=== PATIENT | female | born 1945 | race Caucasian/White ===

== ENCOUNTER → 2019-03-17 | Outpatient (CLI) | payer MEDICARE, OTHER ==
[~2019-03-17] MED LIST: B/P MED; CALC-712 PO; CHLO25TA2 PO; CHOL231P PO; CQ10; METR500T PO; ONDAN4ODT PO; multi-vitamines PO
--- NOTE | 2019-03-18 18:51 | Diagnostic Imaging Report ---
INDICATION: Screening. Digital mammogram bilateral screening with 3D tomosynthesis. The current study was also evaluated with a Computer Aided Detection (CAD) system. This study was compared to the prior exam of 04/12/2008. At this time, there are no current complaints. FINDINGS: The fibroglandular tissue in both breasts is heterogeneously dense. This does limit the sensitivity of this exam. Overall, there does not appear to have been any significant change when compared to the prior study. No primary or secondary sign of malignancy is noted. 3D tomographic images fail to show any sign of malignancy. IMPRESSION: 1. There is no evidence for malignancy. 2. The patient should have her annual bilateral screening mammogram on schedule in March of 2020. ACR BI-RADS Category 1: Negative. Result letter will be mailed to the patient. Note: At least 10% of breast cancer is not imaged by mammography. Dictated by: Dictated on workstation # [id number]
== END ==
LOC: RAD 07:50
PROVIDERS: ATTEND Nurse Practitioner Family
DX: Z12.31 Encounter for screening mammogram for malignant neoplasm of breast (principal)
CPT/HCPCS: 77067

== ENCOUNTER 2019-03-25 05:35 | Outpatient (CLI) | payer MEDICARE, OTHER ==
[~2019-03-25] VITALS: Ht 157.5 cm; Wt 48.5 kg
== END 2019-03-25 12:42 | disposition home or self-care (01) ==
LOC: PREOP 05:35
PROVIDERS: ATTEND Internal Medicine
DX: Z01.818 Encounter for other preprocedural examination (principal)

== ENCOUNTER 2019-04-01 07:51 | Day surgery (SDC) | payer MEDICARE, OTHER ==
--- NOTE | 2019-03-24 12:30 | HISTORY AND PHYSICAL ---
DATE OF SERVICE: The patient is a 73-year-old white female referred for surveillance colonoscopy with a history of colon cancer diagnosed at the age of 52. This involves sigmoid colon for which she underwent sigmoid colectomy and has had no evidence for recurrence since. I last performed colonoscopy on her seven years ago in 2011 at which time no evidence for neoplasia was identified. Her health remains good. She remains active with a history of well controlled hypertension and excellent performance status. She has noted no bowel habit change and has noted no melena or bright red blood per rectum. She denies abdominal pain. PAST MEDICAL HISTORY: Significant for hypertension. She had childhood asthma, but has not required any medication for this. MEDICATION: A 12.5 mg of chlorthalidone. FAMILY HISTORY: She believes there was one family member and I have forgotten which relative had colon cancer. 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 SOCIAL HISTORY: She is retired with no past smoking and drinking history and is quite active exercising on a regular basis. PHYSICAL EXAMINATION: GENERAL: Reveals a pleasant white female who appears to be in no acute distress. VITAL SIGNS: Blood pressure 110/80, weight is 107 pounds, is down 5.4 pounds from seven years ago. HEENT: Unremarkable. NECK: Revealed no JVD, adenopathy or bruits. CHEST: Clear to auscultation. CARDIOVASCULAR: Revealed a regular rate and rhythm without murmur, S3 or S4. ABDOMEN: Soft, supple without mass, organomegaly or tenderness. Bowel sounds positive. No bruits noted. EXTREMITIES: Reveal no cyanosis, clubbing or edema. ASSESSMENT: The patient was set up for surveillance colonoscopy due to past history of colon cancer, now over 20 years out on 04/01/2019. Prep instructions were given and questions were answered. Job ID: [id number] DocumentID: [id number] Dictated Date: 03/24/2019 11:52:15 Network Support Manager Date: 03/24/2019 12:29:44 Dictated By: TOYA LLOYD MD
[~2019-04-01] VITALS: Ht 157.5 cm; Wt 48.5 kg
--- OUTSIDE RECORDS SUMMARY | 2019-04-01 07:55 | XMS REPORT | CCD ---
Author Author aYdi Quiroz Organization [facility] Address [address] [place] [address] Phone Care Team Providers Care Transit Manager Name Role Phone PP Unavailable CCM Unavailable Summary Purpose Interface Exchange Insurance Providers Payer name Policy type / Coverage type Covered green party ID Effective Begin Date Effective End Date WPS Medicare Part B Medicare Part B [id number] Unknown Unknown [facility] Medicare Part B [id number] Unknown Unknown Family history Mother Diagnosis Age At Onset Kidney cancer Unknown Father Diagnosis Age At Onset Arthritis Unknown Social History Social History Element Codes Description Effective Dates Marital status Unknown [place]ell 11/02/2017 Number of children Unknown 3 08/29/[address]: 405802274 Never smoker 08/29/2015 Alcohol history Unknown occasionally drinks alcohol 08/29/2015 Allergies, Adverse Reactions, Alerts Substance Reaction Codes Entered Date Inactivated Date Status Penicillin Unknown 08/29/2015 No Inactive Date Active Past Medical History Illness Codes Condition Status Onset Date Resolved Date Encounter for screening mammogram for malignant neoplasm of breast ICD-9: V76.10 ICD-10: Z12.31 Active 03/21/2019 Unknown Encounter for gynecological examination (general) (routine ) without abnormal findings ICD-9: V72.31 ICD-10: Z01.419 Active 10/14/2016 Unknown Gastro-esophageal reflux disease without esophagitis ICD-9: 530.81 ICD-10: K21.9 Active 10/14/2016 Unknown Mixed hyperlipidemia ICD-9: 272.2 ICD-10: E78.2 Active 06/28/2018 Unknown Encounter for general adult medical examination without abnormal findings ICD-9: V70.0 ICD-10: Z00.00 Active 06/28/2018 Unknown Encounter for immunization ICD-9: V04.81 ICD-10: Z23 Active 08/31/2017 Unknown Menopausal and female climacteric states ICD-9: 627.2 ICD-10: N95.1 Active 11/02/2017 Unknown Impacted cerumen, right ear ICD-9: 380.4 ICD-10: H61.21 Active 10/19/2016 Unknown Lichen sclerosus et atrophicus ICD-9: 701.0 ICD-10: L90.0 Active 10/14/2016 Unknown Abnormal findings on diagnostic imaging of skull and head, not elsewhere classified ICD-9: 793.0 ICD-10: R93.0 Active 08/28/2015 Unknown Encounter for immunization ICD-9: V03.82 ICD-10: Z23 Active 08/28/2015 Unknown Other allergic rhinitis ICD-9: 477.8 ICD-10: J30.89 Active 08/28/2015 Unknown Problems Condition Codes Effective Dates Condition Status Encounter for screening mammogram for malignant neoplasm of breast ICD-9: V76.10 ICD-10: Z12.31 03/21/2019 Active Encounter for gynecological examination (general) (routine ) without abnormal findings ICD-9: V72.31 ICD-10: Z01.419 10/14/2016 Active Gastro-esophageal reflux disease without esophagitis ICD-9: 530.81 ICD-10: K21.9 10/14/2016 Active Mixed hyperlipidemia ICD-9: 272.2 ICD-10: E78.2 06/28/2018 Active Encounter for general adult medical examination without abnormal findings ICD-9: V70.0 ICD-10: Z00.00 06/28/2018 Active Encounter for immunization ICD-9: V04.81 ICD-10: Z23 08/31/2017 Active Menopausal and female climacteric states ICD-9: 627.2 ICD-10: N95.1 11/02/2017 Active Impacted cerumen, right ear ICD-9: 380.4 ICD-10: H61.21 10/19/2016 Active Lichen sclerosus et atrophicus ICD-9: 701.0 ICD-10: L90.0 10/14/2016 Active Abnormal findings on diagnostic imaging of skull and head, not elsewhere classified ICD-9: 793.0 ICD-10: R93.0 08/28/2015 Active Encounter for immunization ICD-9: V03.82 ICD-10: Z23 08/28/2015 Active Other allergic rhinitis ICD-9: 477.8 ICD-10: J30.89 08/28/2015 Active Medications Medication Codes Instructions Start Date Stop Date Status Fill Instructions Heidya 1 gram capsule RxNorm: 962942 1 Capsule(s) PO BID 201802/18/2020 Active [place] approved Lovaza 1 gram capsule RxNorm: 463035 1 Capsule(s) PO BID 201711/25/2018 Inactive pravastatin 20 mg tablet RxNorm: 148159 TAKE 1 TABLET DAILY 11/01/2017 Inactive omeprazole 20 mg capsule,delayed release RxNorm: 278948 1 CAPSULE(S) PO QPM 09/22/2017 11/01/2017 Inactive pravastatin 20 mg tablet RxNorm: 012040 TAKE 1 TABLET DAILY 10/04/2017 Inactive pravastatin 20 mg tablet RxNorm: 066050 1 TABLET(S) PO DAILY 07/06/2017 Inactive pravastatin 20 mg tablet RxNorm: 071455 1 Tablet(s) PO daily 04/07/2017 Inactive pravastatin 20 mg tablet RxNorm: 351846 1 Tablet(s) PO daily 10/28/2016 Inactive omeprazole 20 mg capsule,delayed release RxNorm: 168321 1 Capsule(s) PO QPM 10/15/2016 09/21/2017 Inactive Vitamin B-12 oral RxNorm: 14647 oral No Start Date Active CoQ10 SG 100 100 mg-100 unit capsule RxNorm: 702642 1 Capsule(s) PO daily No Start Date 10/14/2016 Inactive loratadine 10 mg tablet RxNorm: 603853 1 Tablet(s) PO daily No Start Date 11/01/2017 Inactive pravastatin 10 mg tablet RxNorm: 474886 1 Tablet(s) PO daily No Start Date 11/02/2018 Inactive aspirin 81 mg tablet RxNorm: 776100 1 Tablet(s) PO daily No Start Date 10/14/2016 Inactive Premarin vaginal RxNorm: 4099 vaginal No Start Date 11/01/2017 Inactive Medication Administered No Medication Administered data Immunizations Vaccine Codes Date Status Influenza CVX: 141 08/23/2018 completed Influenza CVX: 141 08/31/2017 completed Pneumococcal (Adult) CVX: 133 08/29/2015 completed Pneumococcal (Adult) CVX: 133 08/29/2015 completed Influenza CVX: 141 08/16/2014 completed Assessments Condition Codes Effective Dates Encounter for screening mammogram for malignant neoplasm of breast ICD-10: Z12.31 ICD-9: V76.10 03/21/2019 Mixed hyperlipidemia ICD-10: E78.2 ICD-9: 272.2 11/03/2018 Encounter for general adult medical examination without abnormal findings ICD-10: Z00.00 ICD-9: V70.0 09/13/2018 Encounter for immunization ICD-10: Z23 ICD-9: V04.81 08/23/2018 Menopausal and female climacteric states ICD-10: N95.1 ICD-9: 627.2 11/02/2017 Impacted cerumen, right ear ICD-10: H61.21 ICD-9: 380.4 10/20/2016 Lichen sclerosus et atrophicus ICD-10: L90.0 ICD-9: 701.0 10/15/2016 Encounter for gynecological examination (general) (routine) without abnormal findings ICD-10: Z01.419 ICD-9: V72.31 10/15/2016 Gastro-esophageal reflux disease without esophagitis ICD-10 : K21.9 ICD-9: 530.81 10/15/2016 Abnormal findings on diagnostic imaging of skull and head, not elsewhere classified ICD-10: R93.0 ICD-9: 793.0 08/29/2015 Encounter for immunization ICD-10: Z23 ICD-9: V03.82 08/29/2015 Other allergic rhinitis ICD-10: J30.89 ICD-9: 477.8 08/29/2015 Reason For Visit Reason For Visit Effective Dates Notes well woman exam (65+ years) 11/03/2018 Annual Medicare Wellness Exam 09/13/2018 vaccination against influenza 08/23/2018 well woman exam (65+ years) 11/02/2017 vaccination against influenza 08/31/2017 well woman exam (65+ years) 10/15/2016 vaccination against pneumonia 08/29/2015 Results Observation Observation Code Item Item Code Result Date Lipid Ord30 CHOL 271 mg/dL 10/18/2018 Lipid Ord30 HDL 104.0 mg/dl 10/18/2018 Lipid Ord30 TRIG 69 mg/dL 10/18/2018 Lipid Ord30 LDL 153 mg/dL 10/18/2018 Lipid Ord30 C/HDL 2.6 Ratio 10/18/2018 Tsh Ord6 TSH (3rd IS) 4.54 uIU/mL 07/06/2018 Cbc With Differential Ord2 WBC 5.25 K/ul 07/06/2018 Cbc With Differential Ord2 RBC 4.23 M/ul 07/06/2018 Cbc With Differential Ord2 HGB 13.2 g/dl 07/06/2018 Cbc With Differential Ord2 HCT 39.3 % 07/06/2018 Cbc With Differential Ord2 Neut% 56.4 % 07/06/2018 Cbc With Differential Ord2 MCV 92.9 fl 07/06/2018 Cbc With Differential Ord2 Lymph% 33.9 % 07/06/2018 Cbc With Differential Ord2 MCH 31.2 pg 07/06/2018 Cbc With Differential Ord2 Izard% 7.4 % 07/06/2018 Cbc With Differential Ord2 MCHC 33.6 pg 07/06/2018 Cbc With Differential Ord2 Eos% 1.9 % 07/06/2018 Cbc With Differential Ord2 PLT 185 K/ul 07/06/2018 Cbc With Differential Ord2 Baso% 0.4 % 07/06/2018 Cbc With Differential Ord2 RDW 12.7 % 07/06/2018 Cbc With Differential Ord2 Neut ABS# 2.96 K/ul 07/06/2018 Cbc With Differential Ord2 Lymph ABS# 1.78 K/ul 07/06/2018 Cbc With Differential Ord2 Izard ABS# 0.4 K/ul 07/06/2018 Cbc With Differential Ord2 Eos ABS# 0.1 K/ul 07/06/2018 Cbc With Differential Ord2 Baso ABS# 0.0 K/ul 07/06/2018 Lipid Ord30 CHOL 262 mg/dL 07/06/2018 Lipid Ord30 HDL 85.0 mg/dl 07/06/2018 Lipid Ord30 TRIG 69 mg/dL 07/06/2018 Lipid Ord30 LDL 163 mg/dL 07/06/2018 Lipid Ord30 C/HDL 3.1 Ratio 07/06/2018 Comp Metabolic Kvd717 NA 139 mEq/L 07/06/2018 Comp Metabolic Vot688 K 4.1 mEq/L 07/06/2018 Comp Metabolic Fgx875 CL 102 mEq/L 07/06/2018 Comp Metabolic Gtj872 CO2 29.0 mEq/L 07/06/2018 Comp Metabolic Euy407 ANION GAP 12 07/06/2018 Comp Metabolic Pca329 GLUCOSE 98 mg/dL 07/06/2018 Comp Metabolic Wqa200 Creat 0.7 mg/dL 07/06/2018 Comp Metabolic Ewy183 eGFR 82 ml/min/1.73m2 07/06/2018 Comp Metabolic Fss755 BUN 14 mg/dL 07/06/2018 Comp Metabolic Ama203 B/C Ratio 18.9 Ratio 07/06/2018 Comp Metabolic Qiy001 CALCIUM 9.4 mg/dL 07/06/2018 Comp Metabolic Ifq673 ALK PHOS 50 U/L 07/06/2018 Comp Metabolic Mjg360 AST(SGOT) 18 U/L 07/06/2018 Comp Metabolic Cqz865 ALT(SGPT) 8 U/L 07/06/2018 Comp Metabolic Yxm355 BILI T 0.6 mg/dL 07/06/2018 Comp Metabolic Fvv001 ALBUMIN 4.3 g/dL 07/06/2018 Comp Metabolic Lta048 TPRO 7.2 g/dL 07/06/2018 Comp Metabolic Ted643 GLOB 2.9 g/dL 07/06/2018 Comp Metabolic Mkf261 A/G Ratio 1.5 Ratio 07/06/2018 Comp Metabolic Eqc423 Osmo 278 mOsmo 07/06/2018 Lipid Ord30 CHOL 243 mg/dL 03/30/2017 Lipid Ord30 HDL 83.0 mg/dl 03/30/2017 Lipid Ord30 TRIG 70 mg/dL 03/30/2017 Lipid Ord30 LDL 146 mg/dL 03/30/2017 Lipid Ord30 C/HDL 2.9 Ratio 03/30/2017 Comp Metabolic Kum685 NA 137 mEq/L 10/20/2016 Comp Metabolic Asl315 K 4.6 mEq/L 10/20/2016 Comp Metabolic Uvt635 CL 102 mEq/L 10/20/2016 Comp Metabolic Mfr877 CO2 30.0 mEq/L 10/20/2016 Comp Metabolic Tzn320 ANION GAP 10 10/20/2016 Comp Metabolic Rkh953 GLUCOSE 97 mg/dL 10/20/2016 Comp Metabolic Sok677 Creat 0.9 mg/dL 10/20/2016 Comp Metabolic Ilg686 eGFR 69 ml/min/1.73m2 10/20/2016 Comp Metabolic Tei025 BUN 16 mg/dL 10/20/2016 Comp Metabolic Rvb500 B/C Ratio 18.6 Ratio 10/20/2016 Comp Metabolic Zkk166 CALCIUM 9.4 mg/dL 10/20/2016 Comp Metabolic Npa433 ALK PHOS 52 U/L 10/20/2016 Comp Metabolic Lru077 AST(SGOT) 18 U/L 10/20/2016 Comp Metabolic Vfe633 ALT(SGPT) 10 U/L 10/20/2016 Comp Metabolic Vnr589 BILI T 0.7 mg/dL 10/20/2016 Comp Metabolic Aor289 ALBUMIN 4.3 g/dL 10/20/2016 Comp Metabolic Yxl782 TPRO 7.1 g/dL 10/20/2016 Comp Metabolic Yhw311 GLOB 2.8 g/dL 10/20/2016 Comp Metabolic Qju331 A/G Ratio 1.5 Ratio 10/20/2016 Comp Metabolic Bcj980 Osmo 275 mOsmo 10/20/2016 Tsh Ord6 hTSH II 2.06 uIU/mL 10/20/2016 Lipid Ord30 CHOL 276 mg/dL 10/20/2016 Lipid Ord30 HDL 101.0 mg/dl 10/20/2016 Lipid Ord30 TRIG 74 mg/dL 10/20/2016 Lipid Ord30 LDL 160 mg/dL 10/20/2016 Lipid Ord30 C/HDL 2.7 Ratio 10/20/2016 Cbc With Differential Ord2 WBC 6.11 K/ul 10/20/2016 Cbc With Differential Ord2 RBC 4.18 M/ul 10/20/2016 Cbc With Differential Ord2 HGB 13.1 g/dl 10/20/2016 Cbc With Differential Ord2 HCT 39.6 % 10/20/2016 Cbc With Differential Ord2 Neut% 55.1 % 10/20/2016 Cbc With Differential Ord2 MCV 94.7 fl 10/20/2016 Cbc With Differential Ord2 Lymph% 36.5 % 10/20/2016 Cbc With Differential Ord2 MCH 31.3 pg 10/20/2016 Cbc With Differential Ord2 Izard% 6.5 % 10/20/2016 Cbc With Differential Ord2 MCHC 33.1 pg 10/20/2016 Cbc With Differential Ord2 Eos% 1.6 % 10/20/2016 Cbc With Differential Ord2 PLT 221 K/ul 10/20/2016 Cbc With Differential Ord2 Baso% 0.3 % 10/20/2016 Cbc With Differential Ord2 RDW 13.4 % 10/20/2016 Cbc With Differential Ord2 Neut ABS# 3.36 K/ul 10/20/2016 Cbc With Differential Ord2 Lymph ABS# 2.23 K/ul 10/20/2016 Cbc With Differential Ord2 Izard ABS# 0.4 K/ul 10/20/2016 Cbc With Differential Ord2 Eos ABS# 0.1 K/ul 10/20/2016 Cbc With Differential Ord2 Baso ABS# 0.0 K/ul 10/20/2016 Review of Systems System Result Effective Dates Constitutional No recent illness 2017 Constitutional No chills 11/03/2018 Constitutional No fatigue 11/03/2018 Constitutional No fever 11/03/2018 Constitutional No insomnia 11/03/2018 Constitutional No malaise 11/03/2018 Eyes No blindness 11/03/2018 Ears/Nose/Throat/Neck No dental pain Ears/Nose/Throat/Neck No dizziness 2017 Ears/Nose/Throat/Neck No dysphagia 2017 Ears/Nose/Throat/Neck No headache 2017 Ears/Nose/Throat/Neck No hearing loss Ears/Nose/Throat/Neck No nasal allergies 11/03/2018 Ears/Nose/Throat/Neck No sore throat Ears/Nose/Throat/Neck No postnasal drip 11/03/2018 Ears/Nose/Throat/Neck No sinus congestion 11/03/2018 Cardiovascular No chest pain/pressure Cardiovascular No dyspnea 11/03/2018 Cardiovascular No edema 11/03/2018 Cardiovascular No exercise intolerance Cardiovascular No fatigue 11/03/2018 Cardiovascular No near-syncope/dizziness 11/03/2018 Respiratory No chest tightness 2017 Respiratory No cough 11/03/2018 Respiratory No dyspnea 11/03/2018 Respiratory No pedal edema 11/03/2018 Gastrointestinal No abdominal pain 2017 Gastrointestinal No constipation 2017 Gastrointestinal No diarrhea 11/03/2018 Gastrointestinal No gastroesophageal reflux 11/03/2018 Gastrointestinal No nausea 11/03/2018 Gastrointestinal No vomiting 11/03/2018 Genitourinary/Nephrology No dysuria 11/03 Genitourinary/Nephrology No nocturia Genitourinary/Nephrology No urinary incontinence 11/03/2018 Musculoskeletal No stiffness 11/03/2018 Musculoskeletal No swelling 11/03/2018 Musculoskeletal No muscle weakness 2017 Musculoskeletal No myalgias 11/03/2018 Dermatologic No rash 11/03/2018 Dermatologic No sores 11/03/2018 Dermatologic No scar 11/03/2018 Neurologic No dizziness 11/03/2018 Neurologic No headache 11/03/2018 Neurologic No neck pain 11/03/2018 Neurologic No syncope 11/03/2018 Psychiatric No anxiety 11/03/2018 Psychiatric No depression 11/03/2018 Constitutional No recent illness 2017 Constitutional No chills 09/13/2018 Constitutional No fatigue 09/13/2018 Constitutional No fever 09/13/2018 Constitutional No insomnia 09/13/2018 Constitutional No malaise 09/13/2018 Eyes No blindness 09/13/2018 Eyes No vision change 09/13/2018 Ears/Nose/Throat/Neck No dental pain Ears/Nose/Throat/Neck No dizziness 2017 Ears/Nose/Throat/Neck No dysphagia 2017 Ears/Nose/Throat/Neck No headache 2017 Ears/Nose/Throat/Neck No hearing loss Ears/Nose/Throat/Neck No nasal allergies 09/13/2018 Ears/Nose/Throat/Neck No sore throat Ears/Nose/Throat/Neck No postnasal drip 09/13/2018 Ears/Nose/Throat/Neck No sinus congestion 09/13/2018 Cardiovascular No chest pain/pressure Cardiovascular No dyspnea 09/13/2018 Cardiovascular No edema 09/13/2018 Cardiovascular No exercise intolerance Cardiovascular No fatigue 09/13/2018 Cardiovascular No near-syncope/dizziness 09/13/2018 Respiratory No chest tightness 2017 Respiratory No cough 09/13/2018 Respiratory No dyspnea 09/13/2018 Respiratory No pedal edema 09/13/2018 Gastrointestinal No abdominal pain 2017 Gastrointestinal No constipation 2017 Gastrointestinal No diarrhea 09/13/2018 Gastrointestinal No gastroesophageal reflux 09/13/2018 Gastrointestinal No nausea 09/13/2018 Gastrointestinal No vomiting 09/13/2018 Genitourinary/Nephrology No dysuria 09/13 Genitourinary/Nephrology No nocturia Genitourinary/Nephrology No urinary incontinence 09/13/2018 Musculoskeletal No stiffness 09/13/2018 Musculoskeletal No swelling 09/13/2018 Musculoskeletal No muscle weakness 2017 Musculoskeletal No myalgias 09/13/2018 Dermatologic No rash 09/13/2018 Dermatologic No sores 09/13/2018 Dermatologic No scar 09/13/2018 Neurologic No dizziness 09/13/2018 Neurologic No headache 09/13/2018 Neurologic No neck pain 09/13/2018 Neurologic No syncope 09/13/2018 Psychiatric No anxiety 09/13/2018 Psychiatric No depression 09/13/2018 Constitutional No anorexia 09/13/2018 Constitutional No night sweats 2017 Constitutional No diaphoresis 09/13/2018 Constitutional No recent illness 2016 Constitutional No chills 11/02/2017 Constitutional No fatigue 11/02/2017 Constitutional No fever 11/02/2017 Constitutional No insomnia 11/02/2017 Constitutional No malaise 11/02/2017 Eyes No blindness 11/02/2017 Eyes vision change 11/02/2017 Ears/Nose/Throat/Neck No dental pain Ears/Nose/Throat/Neck No dizziness 2016 Ears/Nose/Throat/Neck No dysphagia 2016 Ears/Nose/Throat/Neck No headache 2016 Ears/Nose/Throat/Neck No hearing loss Ears/Nose/Throat/Neck No nasal allergies 11/02/2017 Ears/Nose/Throat/Neck No sore throat Ears/Nose/Throat/Neck taste change 2016 Ears/Nose/Throat/Neck No postnasal drip 11/02/2017 Ears/Nose/Throat/Neck No sinus congestion 11/02/2017 Cardiovascular No chest pain/pressure Cardiovascular No dyspnea 11/02/2017 Cardiovascular No edema 11/02/2017 Cardiovascular No exercise intolerance Cardiovascular No fatigue 11/02/2017 Cardiovascular No near-syncope/dizziness 11/02/2017 Respiratory No chest tightness 2016 Respiratory No cough 11/02/2017 Respiratory No dyspnea 11/02/2017 Respiratory No pedal edema 11/02/2017 Gastrointestinal No abdominal pain 2016 Gastrointestinal No constipation 2016 Gastrointestinal No diarrhea 11/02/2017 Gastrointestinal No gastroesophageal reflux 11/02/2017 Gastrointestinal No nausea 11/02/2017 Gastrointestinal No vomiting 11/02/2017 Genitourinary/Nephrology No dysuria 11/02 Genitourinary/Nephrology No nocturia Genitourinary/Nephrology No urinary incontinence 11/02/2017 Musculoskeletal No stiffness 11/02/2017 Musculoskeletal No swelling 11/02/2017 Musculoskeletal No muscle weakness 2016 Musculoskeletal No myalgias 11/02/2017 Dermatologic No rash 11/02/2017 Dermatologic No sores 11/02/2017 Dermatologic No scar 11/02/2017 Neurologic No dizziness 11/02/2017 Neurologic No headache 11/02/2017 Neurologic No neck pain 11/02/2017 Neurologic No syncope 11/02/2017 Psychiatric No anxiety 11/02/2017 Psychiatric No depression 11/02/2017 Constitutional No recent illness 2015 Constitutional No chills 10/15/2016 Constitutional No fatigue 10/15/2016 Constitutional No fever 10/15/2016 Constitutional No insomnia 10/15/2016 Constitutional No malaise 10/15/2016 Eyes No blindness 10/15/2016 Eyes vision change 10/15/2016 Ears/Nose/Throat/Neck No dental pain Ears/Nose/Throat/Neck No dizziness 2015 Ears/Nose/Throat/Neck No dysphagia 2015 Ears/Nose/Throat/Neck No headache 2015 Ears/Nose/Throat/Neck No hearing loss Ears/Nose/Throat/Neck No nasal allergies 10/15/2016 Ears/Nose/Throat/Neck No sore throat Ears/Nose/Throat/Neck No postnasal drip 10/15/2016 Ears/Nose/Throat/Neck No sinus congestion 10/15/2016 Cardiovascular No chest pain/pressure Cardiovascular No dyspnea 10/15/2016 Cardiovascular No edema 10/15/2016 Cardiovascular No exercise intolerance Cardiovascular No fatigue 10/15/2016 Cardiovascular No near-syncope/dizziness 10/15/2016 Respiratory No chest tightness 2015 Respiratory No cough 10/15/2016 Respiratory No dyspnea 10/15/2016 Respiratory No pedal edema 10/15/2016 Gastrointestinal No abdominal pain 2015 Gastrointestinal No constipation 2015 Gastrointestinal No diarrhea 10/15/2016 Gastrointestinal No gastroesophageal reflux 10/15/2016 Gastrointestinal No nausea 10/15/2016 Gastrointestinal No vomiting 10/15/2016 Genitourinary/Nephrology No dysuria 10/15 Genitourinary/Nephrology No nocturia Genitourinary/Nephrology No urinary incontinence 10/15/2016 Musculoskeletal No stiffness 10/15/2016 Musculoskeletal No swelling 10/15/2016 Musculoskeletal No muscle weakness 2015 Musculoskeletal No myalgias 10/15/2016 Dermatologic No rash 10/15/2016 Dermatologic No sores 10/15/2016 Dermatologic No scar 10/15/2016 Neurologic No dizziness 10/15/2016 Neurologic No headache 10/15/2016 Neurologic No neck pain 10/15/2016 Neurologic No syncope 10/15/2016 Psychiatric No anxiety 10/15/2016 Psychiatric No depression 10/15/2016 Ears/Nose/Throat/Neck taste change 2015 Constitutional No recent illness 2014 Constitutional No chills 08/29/2015 Constitutional No fatigue 08/29/2015 Constitutional No fever 08/29/2015 Constitutional No insomnia 08/29/2015 Constitutional No malaise 08/29/2015 Eyes No blindness 08/29/2015 Eyes No vision change 08/29/2015 Ears/Nose/Throat/Neck No dental pain Ears/Nose/Throat/Neck No dizziness 2014 Ears/Nose/Throat/Neck No dysphagia 2014 Ears/Nose/Throat/Neck No headache 2014 Ears/Nose/Throat/Neck No hearing loss Ears/Nose/Throat/Neck No nasal allergies 08/29/2015 Ears/Nose/Throat/Neck No sore throat Ears/Nose/Throat/Neck No postnasal drip 08/29/2015 Ears/Nose/Throat/Neck No sinus congestion 08/29/2015 Cardiovascular No chest pain/pressure Cardiovascular No dyspnea 08/29/2015 Cardiovascular No edema 08/29/2015 Cardiovascular No exercise intolerance Cardiovascular No fatigue 08/29/2015 Cardiovascular No near-syncope/dizziness 08/29/2015 Respiratory No chest tightness 2014 Respiratory No cough 08/29/2015 Respiratory No dyspnea 08/29/2015 Respiratory No pedal edema 08/29/2015 Gastrointestinal No abdominal pain 2014 Gastrointestinal No constipation 2014 Gastrointestinal No diarrhea 08/29/2015 Gastrointestinal No gastroesophageal reflux 08/29/2015 Gastrointestinal No nausea 08/29/2015 Gastrointestinal No vomiting 08/29/2015 Genitourinary/Nephrology No dysuria 08/29 Genitourinary/Nephrology No nocturia Genitourinary/Nephrology No urinary incontinence 08/29/2015 Musculoskeletal No stiffness 08/29/2015 Musculoskeletal No swelling 08/29/2015 Musculoskeletal No muscle weakness 2014 Musculoskeletal No myalgias 08/29/2015 Dermatologic No rash 08/29/2015 Dermatologic No sores 08/29/2015 Dermatologic No scar 08/29/2015 Neurologic No dizziness 08/29/2015 Neurologic No headache 08/29/2015 Neurologic No neck pain 08/29/2015 Neurologic No syncope 08/29/2015 Psychiatric No anxiety 08/29/2015 Psychiatric No depression 08/29/2015 Physical Exam Exam Name System Name Item Name Status Result Effective Dates Notes Full Exam - General 1994 Constitutional general appearance Development: well developed 11/03/2018 None Full Exam - General 1994 Constitutional general appearance Development: appears stated age 1211/03/2018 None Full Exam - General 1994 Constitutional general appearance Hygiene/Attention to Grooming: good hygiene 11/03/2018 None Full Exam - General 1994 Eyes conjunctiva /eyelids Overall: conjunctiva clear 11/03/2018 None Full Exam - General 1994 Eyes conjunctiva /eyelids Overall: cornea clear 11/03/2018 None Full Exam - General 1994 Eyes conjunctiva /eyelids Overall: eyelids normal 11/03/2018 None Full Exam - General 1994 Eyes pupils and irises Overall: pupils equal, round, reactive to light and accomodation 11/03/2018 None Full Exam - General 1994 Ears/Nose/Throat otoscopic exam Overall: external auditory canals clear 11/03/2018 None Full Exam - General 1994 Ears/Nose/Throat otoscopic exam Overall: tympanic membranes clear 11/03/2018 None Full Exam - General 1994 Ears/Nose/Throat lips/teeth/gingiva Overall: benign lips 11/03/2018 None Full Exam - General 1994 Ears/Nose/Throat lips/teeth/gingiva Overall: normal dentition 11/03/2018 None Full Exam - General 1994 Ears/Nose/Throat oral cavity/pharynx/larynx Overall: oral mucosa clear 11/03/2018 None Full Exam - General 1994 Ears/Nose/Throat oral cavity/pharynx/larynx Overall: oropharyngeal mucosa clear 11/03/2018 None Full Exam - General 1994 Ears/Nose/Throat oral cavity/pharynx/larynx Overall: hypopharynx benign 11/03/2018 None Full Exam - General 1994 Ears/Nose/Throat oral cavity/pharynx/larynx Overall: no masses 11/03/2018 None Full Exam - General 1994 Respiratory auscultation Overall: breath sounds clear bilaterally 11/03/2018 None Full Exam - General 1994 Respiratory respiratory effort/rhythm Overall: no retractions 11/03/2018 None Full Exam - General 1994 Respiratory respiratory effort/rhythm Overall: normal rate 11/03/2018 None Full Exam - General 1994 Cardiovascular extremities Overall: no clubbing 11/03/2018 None Full Exam - General 1994 Cardiovascular auscultation of heart Overall: regular rate 11/03/2018 None Full Exam - General 1994 Cardiovascular auscultation of heart Overall: normal heart sounds 11/03/2018 None Full Exam - General 1994 Abdomen abdominal exam Overall: no tenderness 11/03/2018 None Full Exam - General 1994 Abdomen abdominal exam Overall: normal bowel sounds 11/03/2018 None Full Exam - General 1994 Lymphatic neck nodes Overall: anterior cervical chain benign 11/03/2018 None Full Exam - General 1994 Lymphatic neck nodes Overall: posterior cervical chain benign 11/03/2018 None Full Exam - General 1994 Musculoskeletal spine, ribs and pelvis Overall: spine benign 11/03/2018 None Full Exam - General 1994 Musculoskeletal spine, ribs and pelvis Overall: sacroiliac joint benign 11/03/2018 None Full Exam - General 1994 Musculoskeletal spine, ribs and pelvis Overall: good posture 11/03/2018 None Full Exam - General 1994 Musculoskeletal head and neck Overall: head atraumatic 11/03/2018 None Full Exam - General 1994 Musculoskeletal head and neck Overall: cervical spine benign 11/03/2018 None Full Exam - General 1994 Integument inspection of skin Overall: few scattered moles, no gross abnormalities 11/03/2018 None Full Exam - General 1994 Neurologic cranial nerves Overall: crainial nerves 2 - 12 grossly intact 11/03/2018 None Full Exam - General 1994 Psychiatric orientation/consciousness Overall: oriented to person, place and time 11/03/2018 None Full Exam - General 1994 Psychiatric mood and affect Overall: normal mood and affect 11/03/2018 None Full Exam - General 1994 Constitutional general appearance Development: well developed 09/13/2018 None Full Exam - General 1994 Constitutional general appearance Development: appears stated age 1009/13/2018 None Full Exam - General 1994 Constitutional general appearance Hygiene/Attention to Grooming: good hygiene 09/13/2018 None Full Exam - General 1994 Eyes conjunctiva /eyelids Overall: conjunctiva clear 09/13/2018 None Full Exam - General 1994 Eyes conjunctiva /eyelids Overall: cornea clear 09/13/2018 None Full Exam - General 1994 Eyes conjunctiva /eyelids Overall: eyelids normal 09/13/2018 None Full Exam - General 1994 Eyes pupils and irises Overall: pupils equal, round, reactive to light and accomodation 09/13/2018 None Full Exam - General 1994 Ears/Nose/Throat otoscopic exam Overall: external auditory canals clear 09/13/2018 None Full Exam - General 1994 Ears/Nose/Throat otoscopic exam Overall: tympanic membranes clear 09/13/2018 None Full Exam - General 1994 Ears/Nose/Throat lips/teeth/gingiva Overall: benign lips 09/13/2018 None Full Exam - General 1994 Ears/Nose/Throat lips/teeth/gingiva Overall: normal dentition 09/13/2018 None Full Exam - General 1994 Ears/Nose/Throat oral cavity/pharynx/larynx Overall: oral mucosa clear 09/13/2018 None Full Exam - General 1994 Ears/Nose/Throat oral cavity/pharynx/larynx Overall: oropharyngeal mucosa clear 09/13/2018 None Full Exam - General 1994 Ears/Nose/Throat oral cavity/pharynx/larynx Overall: hypopharynx benign 09/13/2018 None Full Exam - General 1994 Ears/Nose/Throat oral cavity/pharynx/larynx Overall: no masses 09/13/2018 None Full Exam - General 1994 Respiratory auscultation Overall: breath sounds clear bilaterally 09/13/2018 None Full Exam - General 1994 Respiratory respiratory effort/rhythm Overall: no retractions 09/13/2018 None Full Exam - General 1994 Respiratory respiratory effort/rhythm Overall: normal rate 09/13/2018 None Full Exam - General 1994 Cardiovascular extremities Overall: no clubbing 09/13/2018 None Full Exam - General 1994 Cardiovascular auscultation of heart Overall: regular rate 09/13/2018 None Full Exam - General 1994 Cardiovascular auscultation of heart Overall: normal heart sounds 09/13/2018 None Full Exam - General 1994 Musculoskeletal spine, ribs and pelvis Overall: spine benign 09/13/2018 None Full Exam - General 1994 Musculoskeletal spine, ribs and pelvis Overall: sacroiliac joint benign 09/13/2018 None Full Exam - General 1994 Musculoskeletal spine, ribs and pelvis Overall: good posture 09/13/2018 None Full Exam - General 1994 Musculoskeletal head and neck Overall: head atraumatic 09/13/2018 None Full Exam - General 1994 Musculoskeletal head and neck Overall: cervical spine benign 09/13/2018 None Full Exam - General 1994 Integument inspection of skin Overall: few scattered moles, no gross abnormalities 09/13/2018 None Full Exam - General 1994 Neurologic deep tendon reflexes Overall: deep tendon reflexes intact 09/13/2018 None Full Exam - General 1994 Neurologic cranial nerves Overall: crainial nerves 2 - 12 grossly intact 09/13/2018 None Full Exam - General 1994 Psychiatric orientation/consciousness Overall: oriented to person, place and time 09/13/2018 None Full Exam - General 1994 Psychiatric mood and affect Overall: normal mood and affect 09/13/2018 None Full Exam - General 1994 Constitutional general appearance Development: well developed 11/02/2017 None Full Exam - General 1994 Constitutional general appearance Development: appears stated age 1211/02/2017 None Full Exam - General 1994 Constitutional general appearance Hygiene/Attention to Grooming: good hygiene 11/02/2017 None Full Exam - General 1994 Eyes conjunctiva /eyelids Overall: conjunctiva clear 11/02/2017 None Full Exam - General 1994 Eyes conjunctiva /eyelids Overall: cornea clear 11/02/2017 None Full Exam - General 1994 Eyes conjunctiva /eyelids Overall: eyelids normal 11/02/2017 None Full Exam - General 1994 Eyes pupils and irises Overall: pupils equal, round, reactive to light and accomodation 11/02/2017 None Full Exam - General 1994 Ears/Nose/Throat otoscopic exam Overall: external auditory canals clear 11/02/2017 None Full Exam - General 1994 Ears/Nose/Throat otoscopic exam Overall: tympanic membranes clear 11/02/2017 None Full Exam - General 1994 Ears/Nose/Throat lips/teeth/gingiva Overall: benign lips 11/02/2017 None Full Exam - General 1994 Ears/Nose/Throat lips/teeth/gingiva Overall: normal dentition 11/02/2017 None Full Exam - General 1994 Ears/Nose/Throat oral cavity/pharynx/larynx Overall: oral mucosa clear 11/02/2017 None Full Exam - General 1994 Ears/Nose/Throat oral cavity/pharynx/larynx Overall: oropharyngeal mucosa clear 11/02/2017 None Full Exam - General 1994 Ears/Nose/Throat oral cavity/pharynx/larynx Overall: hypopharynx benign 11/02/2017 None Full Exam - General 1994 Ears/Nose/Throat oral cavity/pharynx/larynx Overall: no masses 11/02/2017 None Full Exam - General 1994 Respiratory auscultation Overall: breath sounds clear bilaterally 11/02/2017 None Full Exam - General 1994 Respiratory respiratory effort/rhythm Overall: no retractions 11/02/2017 None Full Exam - General 1994 Respiratory respiratory effort/rhythm Overall: normal rate 11/02/2017 None Full Exam - General 1994 Cardiovascular extremities Overall: no clubbing 11/02/2017 None Full Exam - General 1994 Cardiovascular auscultation of heart Overall: regular rate 11/02/2017 None Full Exam - General 1994 Cardiovascular auscultation of heart Overall: normal heart sounds 11/02/2017 None Full Exam - General 1994 Chest/Breast breast and axillae palpation Overall: breasts non-tender 11/02/2017 None Full Exam - General 1994 Chest/Breast breast and axillae palpation Overall: axillae non-tender 11/02/2017 None Full Exam - General 1994 Chest/Breast breast and axillae palpation Overall: no nipple discharge 11/02/2017 None Full Exam - General 1994 Abdomen abdominal exam Overall: no tenderness 11/02/2017 None Full Exam - General 1994 Abdomen abdominal exam Overall: normal bowel sounds 11/02/2017 None Full Exam - General 1994 Genitourinary cervix Overall: surgically absent 11/02/2017 None Full Exam - General 1994 Genitourinary labia and vagina Labia: no lesions present 11/02/2017 None Full Exam - General 1994 Genitourinary labia and vagina Vagina: erythematous 11/02/2017 lichen sclerosis Full Exam - General 1994 Genitourinary adnexa/parametria Overall: no tenderness 11/02/2017 None Full Exam - General 1994 Genitourinary urethra Overall: no masses 11/02/2017 None Full Exam - General 1994 Genitourinary bladder Overall: no tenderness 11/02/2017 None Full Exam - General 1994 Lymphatic neck nodes Overall: anterior cervical chain benign 11/02/2017 None Full Exam - General 1994 Lymphatic neck nodes Overall: posterior cervical chain benign 11/02/2017 None Full Exam - General 1994 Musculoskeletal spine, ribs and pelvis Overall: spine benign 11/02/2017 None Full Exam - General 1994 Musculoskeletal spine, ribs and pelvis Overall: sacroiliac joint benign 11/02/2017 None Full Exam - General 1994 Musculoskeletal spine, ribs and pelvis Overall: good posture 11/02/2017 None Full Exam - General 1994 Musculoskeletal head and neck Overall: head atraumatic 11/02/2017 None Full Exam - General 1994 Musculoskeletal head and neck Overall: cervical spine benign 11/02/2017 None Full Exam - General 1994 Integument inspection of skin Overall: few scattered moles, no gross abnormalities 11/02/2017 None Full Exam - General 1994 Neurologic deep tendon reflexes Overall: deep tendon reflexes intact 11/02/2017 None Full Exam - General 1994 Neurologic cranial nerves Overall: crainial nerves 2 - 12 grossly intact 11/02/2017 None Full Exam - General 1994 Psychiatric orientation/consciousness Overall: oriented to person, place and time 11/02/2017 None Full Exam - General 1994 Psychiatric mood and affect Overall: normal mood and affect 11/02/2017 None Full Exam - General 1994 Constitutional general appearance Development: well developed 10/15/2016 None Full Exam - General 1994 Constitutional general appearance Development: appears stated age 1110/15/2016 None Full Exam - General 1994 Constitutional general appearance Hygiene/Attention to Grooming: good hygiene 10/15/2016 None Full Exam - General 1994 Eyes conjunctiva /eyelids Overall: conjunctiva clear 10/15/2016 None Full Exam - General 1994 Eyes conjunctiva /eyelids Overall: cornea clear 10/15/2016 None Full Exam - General 1994 Eyes conjunctiva /eyelids Overall: eyelids normal 10/15/2016 None Full Exam - General 1994 Eyes pupils and irises Overall: pupils equal, round, reactive to light and accomodation 10/15/2016 None Full Exam - General 1994 Ears/Nose/Throat otoscopic exam Overall: external auditory canals clear 10/15/2016 None Full Exam - General 1994 Ears/Nose/Throat otoscopic exam Overall: tympanic membranes clear 10/15/2016 None Full Exam - General 1994 Ears/Nose/Throat lips/teeth/gingiva Overall: benign lips 10/15/2016 None Full Exam - General 1994 Ears/Nose/Throat lips/teeth/gingiva Overall: normal dentition 10/15/2016 None Full Exam - General 1994 Ears/Nose/Throat oral cavity/pharynx/larynx Overall: oral mucosa clear 10/15/2016 None Full Exam - General 1994 Ears/Nose/Throat oral cavity/pharynx/larynx Overall: oropharyngeal mucosa clear 10/15/2016 None Full Exam - General 1994 Ears/Nose/Throat oral cavity/pharynx/larynx Overall: hypopharynx benign 10/15/2016 None Full Exam - General 1994 Ears/Nose/Throat oral cavity/pharynx/larynx Overall: no masses 10/15/2016 None Full Exam - General 1994 Respiratory auscultation Overall: breath sounds clear bilaterally 10/15/2016 None Full Exam - General 1994 Respiratory respiratory effort/rhythm Overall: no retractions 10/15/2016 None Full Exam - General 1994 Respiratory respiratory effort/rhythm Overall: normal rate 10/15/2016 None Full Exam - General 1994 Cardiovascular extremities Overall: no clubbing 10/15/2016 None Full Exam - General 1994 Cardiovascular auscultation of heart Overall: regular rate 10/15/2016 None Full Exam - General 1994 Cardiovascular auscultation of heart Overall: normal heart sounds 10/15/2016 None Full Exam - General 1994 Abdomen abdominal exam Overall: no tenderness 10/15/2016 None Full Exam - General 1994 Abdomen abdominal exam Overall: normal bowel sounds 10/15/2016 None Full Exam - General 1994 Lymphatic neck nodes Overall: anterior cervical chain benign 10/15/2016 None Full Exam - General 1994 Lymphatic neck nodes Overall: posterior cervical chain benign 10/15/2016 None Full Exam - General 1994 Musculoskeletal spine, ribs and pelvis Overall: spine benign 10/15/2016 None Full Exam - General 1994 Musculoskeletal spine, ribs and pelvis Overall: sacroiliac joint benign 10/15/2016 None Full Exam - General 1994 Musculoskeletal spine, ribs and pelvis Overall: good posture 10/15/2016 None Full Exam - General 1994 Musculoskeletal head and neck Overall: head atraumatic 10/15/2016 None Full Exam - General 1994 Musculoskeletal head and neck Overall: cervical spine benign 10/15/2016 None Full Exam - General 1994 Integument inspection of skin Overall: few scattered moles, no gross abnormalities 10/15/2016 None Full Exam - General 1994 Neurologic deep tendon reflexes Overall: deep tendon reflexes intact 10/15/2016 None Full Exam - General 1994 Neurologic cranial nerves Overall: crainial nerves 2 - 12 grossly intact 10/15/2016 None Full Exam - General 1994 Psychiatric orientation/consciousness Overall: oriented to person, place and time 10/15/2016 None Full Exam - General 1994 Psychiatric mood and affect Overall: normal mood and affect 10/15/2016 None Full Exam - General 1994 Chest/Breast breast and axillae palpation Overall: breasts non-tender 10/15/2016 None Full Exam - General 1994 Chest/Breast breast and axillae palpation Overall: axillae non-tender 10/15/2016 None Full Exam - General 1994 Chest/Breast breast and axillae palpation Overall: no nipple discharge 10/15/2016 None Full Exam - General 1994 Genitourinary cervix Overall: surgically absent 10/15/2016 None Full Exam - General 1994 Genitourinary labia and vagina Labia: no lesions present 10/15/2016 None Full Exam - General 1994 Genitourinary labia and vagina Vagina: erythematous 10/15/2016 lichen sclerosis Full Exam - General 1994 Genitourinary adnexa/parametria Overall: no tenderness 10/15/2016 None Full Exam - General 1994 Genitourinary urethra Overall: no masses 10/15/2016 None Full Exam - General 1994 Genitourinary bladder Overall: no tenderness 10/15/2016 None Full Exam - General 1994 Constitutional general appearance Development: well developed 08/29/2015 None Full Exam - General 1994 Constitutional general appearance Development: appears stated age 1008/29/2015 None Full Exam - General 1994 Constitutional general appearance Hygiene/Attention to Grooming: good hygiene 08/29/2015 None Full Exam - General 1994 Eyes conjunctiva /eyelids Overall: conjunctiva clear 08/29/2015 None Full Exam - General 1994 Eyes conjunctiva /eyelids Overall: cornea clear 08/29/2015 None Full Exam - General 1994 Eyes conjunctiva /eyelids Overall: eyelids normal 08/29/2015 None Full Exam - General 1994 Eyes pupils and irises Overall: pupils equal, round, reactive to light and accomodation 08/29/2015 None Full Exam - General 1994 Ears/Nose/Throat otoscopic exam Overall: external auditory canals clear 08/29/2015 None Full Exam - General 1994 Ears/Nose/Throat otoscopic exam Overall: tympanic membranes clear 08/29/2015 None Full Exam - General 1994 Ears/Nose/Throat lips/teeth/gingiva Overall: benign lips 08/29/2015 None Full Exam - General 1994 Ears/Nose/Throat lips/teeth/gingiva Overall: normal dentition 08/29/2015 None Full Exam - General 1994 Ears/Nose/Throat oral cavity/pharynx/larynx Overall: oral mucosa clear 08/29/2015 None Full Exam - General 1994 Ears/Nose/Throat oral cavity/pharynx/larynx Overall: oropharyngeal mucosa clear 08/29/2015 None Full Exam - General 1994 Ears/Nose/Throat oral cavity/pharynx/larynx Overall: hypopharynx benign 08/29/2015 None Full Exam - General 1994 Ears/Nose/Throat oral cavity/pharynx/larynx Overall: no masses 08/29/2015 None Full Exam - General 1994 Respiratory auscultation Overall: breath sounds clear bilaterally 08/29/2015 None Full Exam - General 1994 Respiratory respiratory effort/rhythm Overall: no retractions 08/29/2015 None Full Exam - General 1994 Respiratory respiratory effort/rhythm Overall: normal rate 08/29/2015 None Full Exam - General 1994 Cardiovascular extremities Overall: no clubbing 08/29/2015 None Full Exam - General 1994 Cardiovascular auscultation of heart Overall: regular rate 08/29/2015 None Full Exam - General 1994 Cardiovascular auscultation of heart Overall: normal heart sounds 08/29/2015 None Full Exam - General 1994 Abdomen abdominal exam Overall: no tenderness 08/29/2015 None Full Exam - General 1994 Abdomen abdominal exam Overall: normal bowel sounds 08/29/2015 None Full Exam - General 1994 Lymphatic neck nodes Overall: anterior cervical chain benign 08/29/2015 None Full Exam - General 1994 Lymphatic neck nodes Overall: posterior cervical chain benign 08/29/2015 None Full Exam - General 1994 Musculoskeletal spine, ribs and pelvis Overall: spine benign 08/29/2015 None Full Exam - General 1994 Musculoskeletal spine, ribs and pelvis Overall: sacroiliac joint benign 08/29/2015 None Full Exam - General 1994 Musculoskeletal spine, ribs and pelvis Overall: good posture 08/29/2015 None Full Exam - General 1994 Musculoskeletal head and neck Overall: head atraumatic 08/29/2015 None Full Exam - General 1994 Musculoskeletal head and neck Overall: cervical spine benign 08/29/2015 None Full Exam - General 1994 Integument inspection of skin Overall: few scattered moles, no gross abnormalities 08/29/2015 None Full Exam - General 1994 Neurologic deep tendon reflexes Overall: deep tendon reflexes intact 08/29/2015 None Full Exam - General 1994 Neurologic cranial nerves Overall: crainial nerves 2 - 12 grossly intact 08/29/2015 None Full Exam - General 1994 Psychiatric orientation/consciousness Overall: oriented to person, place and time 08/29/2015 None Full Exam - General 1994 Psychiatric mood and affect Overall: normal mood and affect 08/29/2015 None Procedures Procedure Codes Date PPPS, SUBSEQ VISIT CPT -4: G0439 09/13/2018 ADMIN INFLUENZA VIRUS VAC CPT-4: G0008 08/23/2018 FLU VAC NO PRSV 4 FOX 3 YRS+ CPT-4: 17435 08/23/2018 FLU VAC NO PRSV 4 FOX 3 YRS+ CPT-4: 77233 08/31/2017 ADMIN INFLUENZA VIRUS VAC CPT-4: G0008 08/31/2017 ADMIN PNEUMOCOCCAL VACCINE SNOMED CT: 31707273 CPT-4: G0009 08/29/2015 PNEUMOCOCCAL VACC [address]: 569[address]205 CPT-4: 63821 08/29/2015 Vital Signs Date Vital 11/03/2018 Blood Pressure 1: 140/72 Code : 8480-6 BMI: 19.9 Code : 55218-8 Heart Rate 1 : 69 bpm Height: 5'2" SpO2: 98% Weight: 109 lbs 09/13/2018 Blood Pressure 1: 118/70 Code : 8480-6 BMI: 20.1 Code : 43352-4 Heart Rate 1 : 60 bpm Height: 5'2" Waist Measure (cm): 66 cm Weight: 110 lbs 11/02/2017 Blood Pressure 1: 118/70 Code : 8480-6 BMI: 19.9 Code : 27743-5 Heart Rate 1 : 71 bpm Height: 5'2" SpO2: 98% Weight: 109 lbs 10/15/2016 Blood Pressure 1: 136/78 Code : 8480-6 BMI: 21.0 Code : 50493-6 Heart Rate 1 : 66 bpm Height: 5'2" SpO2: 98% Weight: 115 lbs 08/29/2015 Blood Pressure 1: 142/86 Code : 8480-6 BMI: 20.1 Code : 40273-7 Heart Rate 1 : 72 bpm Height: 5'2" SpO2: 97% Weight: 110 lbs Functional Status No Functional Status data History of Present Illness Symptom Name Status Result Effective Date Notes Lifestyle regular seatbelt use 11/03/2018 None Lifestyle normal sleep patterns 11/03/2018 --some nights she has trouble Lifestyle normal amount of stress 11/03/2018 None Menstrual History menopause 11/03/2018 None Nutrition and Exercise normal weight 11/03/2018 None Nutrition and Exercise balanced nutrition 11/03/2018 None Nutrition and Exercise moderate exercise 11/03/2018 None Cardiovascular Risk Factors dyslipidemia 11/03/2018 None Annual Medicare Wellness Exam Alcohol Use drinks 2-5 days per week 09/13/2018 None Annual Medicare Wellness Exam Aspirin Use no 09/13/2018 None Annual Medicare Wellness Exam Blood Glucose (self reported) desireable (below 100) 09/13/2018 None Annual Medicare Wellness Exam Blood Pressure (self reported ) low / normal (120/80) 09/13/2018 None Annual Medicare Wellness Exam Cholesterol (self reported) diagnosed with elevated cholesterol 2017 None Annual Medicare Wellness Exam Depression (last 6 months) some of the time 09/13/2018 None Annual Medicare Wellness Exam Depression or Hopelessness some of the time 09/13/2018 None Annual Medicare Wellness Exam Describe Your Health very good 09/13/2018 None Annual Medicare Wellness Exam Exercise Habits exercises _ days per week 09/13/2018 None Annual Medicare Wellness Exam Handling Stress usually erinn effectively 09/13/2018 None Annual Medicare Wellness Exam Hemaglobin A-1C (self reported ) don't know 09/13/2018 None Annual Medicare Wellness Exam Interaction with Friends yes 09/13/2018 None Annual Medicare Wellness Exam Interests & Pleasure most of the time 09/13/2018 None Annual Medicare Wellness Exam Life Satisfaction satisfied 09/13/2018 None Annual Medicare Wellness Exam Motor Vehicle Safety always fastens seat belt: y 09/13/2018 None Annual Medicare Wellness Exam Smoking and Tobacco Use non smoker 09/13/2018 None Annual Medicare Wellness Exam Social & Emotional Support sometimes 09/13/2018 None Annual Medicare Wellness Exam Stress some of the time 09/13/2018 None Annual Medicare Wellness Exam Sun Exposure protects skin when outdoors: y 09/13/2018 None Annual Medicare Wellness Exam Nutrition servings of fried food / high fat foods per day: _ 2017 4 per week- coconut oil for stir sal Annual Medicare Wellness Exam Nutrition servings of high fiber / whole grain per day: _ 09/13/2018 brown rice Annual Medicare Wellness Exam Nutrition servings of vegetables / fruit per day: 2-3 09/13/2018 None Annual Medicare Wellness Exam Hours of Sleep 3-4 09/13/2018 gets 3-4 solid hours and naps in the day time well woman exam (65+ years) Lifestyle regular seatbelt use 11/02/2017 None well woman exam (65+ years) Lifestyle normal sleep patterns 11/02/2017 None well woman exam (65+ years) Lifestyle normal amount of stress 11/02/2017 None well woman exam (65+ years) Menstrual History menopause 11/02/2017 None well woman exam (65+ years) Nutrition and Exercise normal weight 11/02/2017 None well woman exam (65+ years) Nutrition and Exercise balanced nutrition 11/02/2017 None well woman exam (65+ years) Cardiovascular Risk Factors dyslipidemia 11/02/2017 None well woman exam (65+ years) Nutrition and Exercise moderate exercise 11/02/2017 None well woman exam (65+ years) Lifestyle regular seatbelt use 10/15/2016 None well woman exam (65+ years) Lifestyle normal sleep patterns 10/15/2016 None well woman exam (65+ years) Lifestyle normal amount of stress 10/15/2016 None well woman exam (65+ years) Nutrition and Exercise normal weight 10/15/2016 None well woman exam (65+ years) Nutrition and Exercise balanced nutrition 10/15/2016 None well woman exam (65+ years) Nutrition and Exercise excessive exercise 10/15/2016 None well woman exam (65+ years) Nutrition and Exercise moderate exercise 10/15/2016 None taste change Quality altered bitter taste 10/15/2016 None taste change Onset and Resolution ongoing 10/15/2016 None taste change Timing of Episodes in the morning 10/15/2016 None taste change Timing of Episodes upon awakening 10/15/2016 None taste change Triggers no known associated factors 10/15/2016 None well woman exam (65+ years) Menstrual History menopause 10/15/2016 None well woman exam (65+ years) Sexual Activity is monogamous 10/15/2016 None well woman exam (65+ years) Sexual Activity complains of dyspareunia 10/15/2016 None Advance Directives No Advance Directive data Encounters Encounter Performer Location Codes Date ([id number]) [id number] EST. PATIENT, LEVEL III Diagnosis: Mixed hyperlipidemia[ICD10: E78.2] [facility] CPT-4: 26125 11/03/2018 ([id number]) [id number] EST. PATIENT, LEVEL III Diagnosis: Menopausal and female climacteric states[ICD10: N95.1] [facility] CPT-4: 61589 11/02/2017 ([id number]) Miscellaneous no charge Diagnosis: Impacted cerumen, right ear[ICD10: H61.21] Wendy Quiroz MD, [facility] CPT-4: 39700 10/20/2016 ([id number]) [id number] EST. 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] Yadi Quiroz MD, [facility] CPT-4: 07652 10/15/2016 ([id number]) OFFICE VISIT, NEW - LEVEL 4 Diagnosis: Abnormal findings on diagnostic imaging of skull and head, not elsewhere classified[ICD10: R93.0] Diagnosis: Other allergic rhinitis[ICD10: J30.89] Yadi Quiroz MD, [facility] CPT-4: 56545 08/29/2015 Plan of Care Planned Activity Notes Codes Status Date Patient Education: Patient Medication Summary Completed 03/21/2019 Care Plan: [facility]CREENING[facility]AMMOGRAPHYDIGITAL [facility] : 36331-6 Pending 03/21/2019 Visit Plan: Hyperlipidemia - pt has been counseled about appropriate diet, exercise, and need for low fat food choices. I have discussed the need for the patient to take medications as prescribed. If the patient has negative side effects from the medication, they are to CALL the office and not abruptly discontinue the medication without discussion with a practitioner in the office. We will check labs in 3-6 months for follow up on the patient's chronic medical problem and to assure normal liver response to medications. 11/03/2018 Appointment: Yadi Quiroz WPtel: [facility] [facility] 11/03/2018 Patient Education: Patient Medication Summary Completed 11/03/2018 Patient Education: Cholesterol Management Completed 11/03/2018 Visit Plan: Medicare Exam - today we discussed the patients past history, immunizations, preventative exams/evaluations - colonoscopy, fecal occult blood testing, routine labs for renal function, glucose, cholesterol, osteoporosis evaluations, cardiovascular testing and cancer screenings. We have also discussed mental health and the signs/symptoms of depression. The patient was advised of home safety evaluations and the need to make sure that as the aging process continues, we need to be aware of different ways to make the home a safer place to reside. The patient has also been counseled that exercise is necessary - and of utmost importance as we age to help decrease fall risk and to maintain independence in the home. Today we discussed the need for the patient to create paperwork for Advanced directives as well as for the patient to provide this office with a copy of her DOPA paperwork for health care surrogate. 09/13/2018 Appointment: Wendy Villaseñor [facility]Ptel[facility] [place] [address] - Annual Wellness Visit 09/13/2018 Patient Education: Patient Medication Summary Completed 09/13/2018 Appointment: Injection 08/23/2018 Patient Education: Patient Medication Summary Completed 08/23/2018 Patient Education: Patient Medication Summary Completed 06/28/2018 Visit Plan: Well Adult - pt was counseled about diet, exercise, and encouraged to follow a heart healthy diet and increase activity level. The patient was instructed to RTC yearly for well adult exams and PRN for acute illnesses. The pt was also instructed to have yearly labs for check of cholesterol, thyroid, chem panel, CBC, and renal functioning. Menopause - continue with supportive care, call if symptoms worsen. 11/02/2017 Patient Education: Patient Medication Summary Completed 11/02/2017 Appointment: Yadi Quiroz [facility]Ptel[facility] [phone] [facility] [facility] 10/22/2017 Appointment: Injection 08/31/2017 Patient Education: Patient Medication Summary Completed 08/31/2017 Appointment: Nurse Visit 10/20/2016 Patient Education: Patient Medication Summary Completed 10/20/2016 Visit Plan: Well Adult - pt was counseled about diet, exercise, and encouraged to follow a heart healthy diet and increase activity level. The patient was instructed to RTC yearly for well adult exams and PRN for acute illnesses. The pt was also instructed to have yearly labs for check of cholesterol, thyroid, chem panel, CBC, and renal functioning. Esophageal Reflux - the patient has been counseled against excessive intake of caffeine, spicy foods, peppermint, and cinnamon - all of which can exacerbate esophageal reflux. The patient is to take medications as prescribed and call the office if the symptoms are not improving. 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 - we will get you scheduled for a repeat MRA of the head to look at the small abnormality of vessel on the left side of your head. Allergies - continue with loratidine. Prevnar 13 shot given today in clinic. 08/29/2015 Appointment: Renea Quirozy WPtel: [phone] [facility] [place] ([place]) New Patient 08/29/2015 Patient Education: Patient Medication Summary Completed 08/29/2015 Instructions Comment use a dime sized amount into vaginal tissue twice weekly . Well Adult - pt was counseled about diet, exercise, and encouraged to follow a heart healthy diet and increase activity level. The patient was instructed to RTC yearly for well adult exams and PRN for acute illnesses. The pt was also instructed to have yearly labs for check of cholesterol, thyroid, chem panel, CBC, and renal functioning. Esophageal Reflux - the patient has been counseled against excessive intake of caffeine, spicy foods, peppermint, and cinnamon - all of which can exacerbate esophageal reflux. The patient is to take medications as prescribed and call the office if the symptoms are not improving. Lichen sclerosis - recommended pt to use premarin vaginal cream to tissue twice weekly Due for mammogram-colonoscopy -recommend patient do them now but patient going to be gone -will create reminder to call her in February to schedule them . Medicare Exam - today we discussed the patients past history, immunizations, preventative exams/evaluations - colonoscopy, fecal occult blood testing, routine labs for renal function, glucose, cholesterol, osteoporosis evaluations, cardiovascular testing and cancer screenings. We have also discussed mental health and the signs/symptoms of depression. The patient was advised of home safety evaluations and the need to make sure that as the aging process continues, we need to be aware of different ways to make the home a safer place to reside. The patient has also been counseled that exercise is necessary - and of utmost importance as we age to help decrease fall risk and to maintain independence in the home. Today we discussed the need for the patient to create paperwork for Advanced directives as well as for the patient to provide this office with a copy of her DOPA paperwork for health care surrogate. . Hyperlipidemia - pt has been counseled about appropriate diet, exercise, and need for low fat food choices. I have discussed the need for the patient to take medications as prescribed. If the patient has negative side effects from the medication, they are to CALL the office and not abruptly discontinue the medication without discussion with a practitioner in the office. We will check labs in 3-6 months for follow up on the patient's chronic medical problem and to assure normal liver response to medications. use a dime sized amount into vaginal tissue twice weekly . Well Adult - pt was counseled about diet, exercise, and encouraged to follow a heart healthy diet and increase activity level. The patient was instructed to RTC yearly for well adult exams and PRN for acute illnesses. The pt was also instructed to have yearly labs for check of cholesterol, thyroid, chem panel, CBC, and renal functioning. Menopause - continue with supportive care, call if symptoms worsen. we will get you scheduled for a repeat MRA of the head to look at the small abnormality of vessel on the left side of your head. . 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 - we will get you scheduled for a repeat MRA of the head to look at the small abnormality of vessel on the left side of your head. Allergies - continue with loratidine. Prevnar 13 shot given today in clinic.
[2019-04-01] MEDS ORDERED: D5 LR IV SOLUTION 1,000 ML IV ONE (07:56)
--- OUTSIDE RECORDS SUMMARY | 2019-04-01 07:56 | XMS REPORT | CCD ---
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 Role Phone PP Unavailable CCM Unavailable Summary Purpose Interface Exchange Insurance Providers Payer name Policy type / Coverage type Covered green party ID Effective Begin Date Effective End Date WPS Medicare Part B Medicare Part B [id number] Unknown Unknown [facility] Medicare Part B [id number] Unknown Unknown Family history Mother Diagnosis Age At Onset Kidney cancer Unknown Father Diagnosis Age At Onset Arthritis Unknown Social History Social History Element Codes Description Effective Dates Marital status Unknown Martell 11/02/2017 Number of children Unknown 3 08/29/[address]: 639864477 Never smoker 08/29/2015 Alcohol history Unknown occasionally drinks alcohol 08/29/2015 Allergies, Adverse Reactions, Alerts Substance Reaction Codes Entered Date Inactivated Date Status Penicillin Unknown 08/29/2015 No Inactive Date Active Past Medical History Illness Codes Condition Status Onset Date Resolved Date Encounter for gynecological examination (general) (routine ) [...] Codes Effective Dates Condition Status Encounter for gynecological examination (general) (routine ) [...] Start Date Stop Date Status Fill Instructions Lovaza 1 gram capsule RxNorm: 092144 1 Capsule(s) PO BID 201802/18/2020 Active [place] approved Lovaza 1 gram capsule RxNorm: 122451 1 Capsule(s) PO BID 201711/25/2018 Inactive pravastatin 20 mg tablet RxNorm: 656814 TAKE 1 TABLET DAILY 11/01/2017 Inactive omeprazole 20 mg capsule,delayed release RxNorm: 637246 1 CAPSULE(S) PO QPM 09/22/2017 11/01/2017 Inactive pravastatin 20 mg tablet RxNorm: 391984 TAKE 1 TABLET DAILY 10/04/2017 Inactive pravastatin 20 mg tablet RxNorm: 216368 1 TABLET(S) PO DAILY 07/06/2017 Inactive pravastatin 20 mg tablet RxNorm: 552930 1 Tablet(s) PO daily 04/07/2017 Inactive pravastatin 20 mg tablet RxNorm: 625791 1 Tablet(s) PO daily 10/28/2016 Inactive omeprazole 20 mg capsule,delayed release RxNorm: 721853 1 Capsule(s) PO QPM 10/15/2016 09/21/2017 Inactive Vitamin B-12 oral RxNorm: 93580 oral No Start Date Active CoQ10 SG 100 100 mg-100 unit capsule RxNorm: 795471 1 Capsule(s) PO daily No Start Date 10/14/2016 Inactive loratadine 10 mg tablet RxNorm: 512588 1 Tablet(s) PO daily No Start Date 11/01/2017 Inactive pravastatin 10 mg tablet RxNorm: 745052 1 Tablet(s) PO daily No Start Date 11/02/2018 Inactive aspirin 81 mg tablet RxNorm: 854283 1 Tablet(s) PO daily No Start Date 10/14/2016 Inactive Premarin vaginal RxNorm: 4099 vaginal No Start Date 11/01/2017 Inactive Medication Administered No Medication Administered data Immunizations Vaccine Codes Date Status Influenza CVX: 141 08/23/2018 completed Influenza CVX: 141 08/31/2017 completed Pneumococcal (Adult) CVX: 133 08/29/2015 completed Pneumococcal (Adult) CVX: 133 08/29/2015 completed Influenza CVX: 141 08/16/2014 completed Assessments Condition Codes Effective Dates Mixed hyperlipidemia ICD-10: E78.2 ICD-9: 272.2 11/03/2018 [...] 31.2 pg 07/06/2018 Cbc With Differential Ord2 [place]% 7.4 % 07/06/2018 Cbc With Differential Ord2 [...] 1.78 K/ul 07/06/2018 Cbc With Differential Ord2 [place] ABS# 0.4 K/ul 07/06/2018 Cbc With Differential Ord2 Eos ABS# 0.1 K/ul 07/06/2018 Cbc With Differential Ord2 Baso ABS# 0.0 K/ul 07/06/2018 Lipid Ord30 CHOL 262 mg/dL 07/06/2018 Lipid Ord30 HDL 85.0 mg/dl 07/06/2018 Lipid Ord30 TRIG 69 mg/dL 07/06/2018 Lipid Ord30 LDL 163 mg/dL 07/06/2018 Lipid Ord30 C/HDL 3.1 Ratio 07/06/2018 Comp Metabolic Yoo969 NA 139 mEq/L 07/06/2018 Comp Metabolic Usf213 K 4.1 mEq/L 07/06/2018 Comp Metabolic Tsu298 CL 102 mEq/L 07/06/2018 Comp Metabolic Xof427 CO2 29.0 mEq/L 07/06/2018 Comp Metabolic Ijs543 ANION GAP 12 07/06/2018 Comp Metabolic Jce292 GLUCOSE 98 mg/dL 07/06/2018 Comp Metabolic Bhp466 Creat 0.7 mg/dL 07/06/2018 Comp Metabolic Yuf856 eGFR 82 ml/min/1.73m2 07/06/2018 Comp Metabolic Eey052 BUN 14 mg/dL 07/06/2018 Comp Metabolic Pra006 B/C Ratio 18.9 Ratio 07/06/2018 Comp Metabolic Eon898 CALCIUM 9.4 mg/dL 07/06/2018 Comp Metabolic Tzo021 ALK PHOS 50 U/L 07/06/2018 Comp Metabolic Hxa917 AST(SGOT) 18 U/L 07/06/2018 Comp Metabolic Iic209 ALT(SGPT) 8 U/L 07/06/2018 Comp Metabolic Oyu241 BILI T 0.6 mg/dL 07/06/2018 Comp Metabolic Hel289 ALBUMIN 4.3 g/dL 07/06/2018 Comp Metabolic Tqp944 TPRO 7.2 g/dL 07/06/2018 Comp Metabolic Jvn368 GLOB 2.9 g/dL 07/06/2018 Comp Metabolic Qze618 A/G Ratio 1.5 Ratio 07/06/2018 Comp Metabolic Qmi597 Osmo 278 mOsmo 07/06/2018 Lipid Ord30 CHOL 243 mg/dL 03/30/2017 Lipid Ord30 HDL 83.0 mg/dl 03/30/2017 Lipid Ord30 TRIG 70 mg/dL 03/30/2017 Lipid Ord30 LDL 146 mg/dL 03/30/2017 Lipid Ord30 C/HDL 2.9 Ratio 03/30/2017 Comp Metabolic Ntw046 NA 137 mEq/L 10/20/2016 Comp Metabolic Wfl047 K 4.6 mEq/L 10/20/2016 Comp Metabolic Khv965 CL 102 mEq/L 10/20/2016 Comp Metabolic Hiq088 CO2 30.0 mEq/L 10/20/2016 Comp Metabolic Htd262 ANION GAP 10 10/20/2016 Comp Metabolic Wxy007 GLUCOSE 97 mg/dL 10/20/2016 Comp Metabolic Qpz410 Creat 0.9 mg/dL 10/20/2016 Comp Metabolic Sfw530 eGFR 69 ml/min/1.73m2 10/20/2016 Comp Metabolic Syt777 BUN 16 mg/dL 10/20/2016 Comp Metabolic Syj161 B/C Ratio 18.6 Ratio 10/20/2016 Comp Metabolic Xvb900 CALCIUM 9.4 mg/dL 10/20/2016 Comp Metabolic Xus829 ALK PHOS 52 U/L 10/20/2016 Comp Metabolic Yws833 AST(SGOT) 18 U/L 10/20/2016 Comp Metabolic Lhq660 ALT(SGPT) 10 U/L 10/20/2016 Comp Metabolic Vco603 BILI T 0.7 mg/dL 10/20/2016 Comp Metabolic Uer883 ALBUMIN 4.3 g/dL 10/20/2016 Comp Metabolic Drt124 TPRO 7.1 g/dL 10/20/2016 Comp Metabolic Ttm455 GLOB 2.8 g/dL 10/20/2016 Comp Metabolic Ryx750 A/G Ratio 1.5 Ratio 10/20/2016 Comp Metabolic Jvd864 Osmo 275 mOsmo 10/20/2016 Tsh Ord6 hTSH [...] 36.5 % 10/20/2016 Cbc With Differential Ord2 [place]% 6.5 % 10/20/2016 Cbc With Differential Ord2 MCH 31.3 pg 10/20/2016 Cbc With Differential Ord2 MCHC 33.1 pg 10/20/2016 Cbc With Differential Ord2 Eos% 1.6 % 10/20/2016 Cbc With Differential Ord2 PLT 221 K/ul 10/20/2016 Cbc With Differential Ord2 Baso% 0.3 % 10/20/2016 Cbc With Differential Ord2 Neut ABS# 3.36 K/ul 10/20/2016 Cbc With Differential Ord2 RDW 13.4 % 10/20/2016 Cbc With Differential Ord2 Lymph ABS# 2.23 K/ul 10/20/2016 Cbc With Differential Ord2 [place] ABS# 0.4 K/ul 10/20/2016 Cbc With Differential [...] NO PRSV 4 FOX 3 YRS+ CPT-4: 19509 08/23/2018 FLU VAC NO PRSV 4 FOX 3 YRS+ CPT-4: 20094 08/31/2017 ADMIN INFLUENZA VIRUS VAC CPT-4: G0008 08/31/2017 ADMIN PNEUMOCOCCAL VACCINE SNOMED CT: 74233106 CPT-4: G0009 08/29/2015 PNEUMOCOCCAL VACC [address]: 39383203 CPT-4: 79385 08/29/2015 Vital Signs Date Vital 11/03/2018 Blood Pressure 1: 140/72 Code : 8480-6 BMI: 19.9 Code : 64480-9 Heart Rate 1 : 69 bpm Height: 5'2" SpO2: 98% Weight: 109 lbs 09/13/2018 Blood Pressure 1: 118/70 Code : 8480-6 BMI: 20.1 Code : 26376-3 Heart Rate 1 : 60 bpm Height: 5'2" Waist Measure (cm): 66 cm Weight: 110 lbs 11/02/2017 Blood Pressure 1: 118/70 Code : 8480-6 BMI: 19.9 Code : 40835-7 Heart Rate 1 : 71 bpm Height: 5'2" SpO2: 98% Weight: 109 lbs 10/15/2016 Blood Pressure 1: 136/78 Code : 8480-6 BMI: 21.0 Code : 12511-7 Heart Rate 1 : 66 bpm Height: 5'2" SpO2: 98% Weight: 115 lbs 08/29/2015 Blood Pressure 1: 142/86 Code : 8480-6 BMI: 20.1 Code : 28078-6 Heart Rate 1 : 72 bpm Height: [...] data Encounters Encounter Performer Location Codes Date ([id number]) [id number] EST. PATIENT, LEVEL III Diagnosis: Mixed hyperlipidemia[ICD10: E78.2] Yadi Quiroz MD, [facility] CPT-4: 54111 11/03/2018 [id number]) 53362 EST. PATIENT, LEVEL III Diagnosis: Menopausal and female climacteric states[ICD10: N95.1] [facility] CPT-4: 93821 11/02/2017 ([id number]) Miscellaneous no charge Diagnosis: Impacted cerumen, right ear[ICD10: H61.21] Wendy Quiroz MD, [facility] CPT-4: 59749 10/20/2016 [id number]) [id number] EST. 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] [facility] CPT-4: 73780 10/15/2016 ([id number]) OFFICE VISIT, NEW - LEVEL 4 Diagnosis: Abnormal findings on diagnostic imaging of skull and head, not elsewhere classified[ICD10: R93.0] Diagnosis: Other allergic rhinitis[ICD10: J30.89] Yadi Quiroz MD, [facility] CPT-4: 30169 08/29/2015 Plan of Care Planned Activity Notes Codes Status Date Visit Plan: Hyperlipidemia - pt has been [...] to medications. 11/03/2018 Appointment: [phone] [facility] 11/03/2018 Patient Education: Patient Medication [...] care surrogate. 09/13/2018 Appointment: [phone] [facility] [facility] - Annual Wellness Visit 09/13/2018 Patient Education: [...] Summary Completed 11/02/2017 Appointment: Yadi Quiroz WPtel: [phone] [facility] Well Woman 10/22/2017 Appointment: Injection 08/31/2017 Patient [...] twice weekly 10/15/2016 Appointment: Yadi Quiroz WPtel: [facility] Well Woman 10/15/2016 Patient Education: Patient Medication Summary Completed 10/15/2016 Appointment: Yadi Quiroz WPtel: [facility] Well Woman 09/17/2016 Visit Plan: 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 - we will get you scheduled for a repeat MRA of the head to look at the small abnormality of vessel on the left side of your head. Allergies - continue with loratidine. Prevnar 13 shot given today in clinic. 08/29/2015 Appointment: [facility] Quiroz [facility]Ptel[phone] [place] ([place]) New Patient 08/29/2015 Patient Education: [...]
[2019-04-01] MEDS ORDERED: D5 LR IV SOLUTION 1,000 ML IV STA (07:57)
--- OUTSIDE RECORDS SUMMARY | 2019-04-01 07:57 | XMS REPORT | CCD ---
Author Author [facility]adi Qu[facility]z Organization [facility] Address [address] [place] [address] Phone Care Team Providers Care Fisher Net Name Role Phone PP Unavailable CCM Unavailable Summary Purpose Interface Exchange Insurance Providers Payer name Policy type / Coverage type Covered libertarian ID Effective Begin Date Effective End Date WPS Medicare Part B Medicare Part B [id number] Unknown Unknown [facility] Medicare Part B [id number] Unknown Unknown Family history Mother Diagnosis Age At Onset Kidney cancer Unknown Father Diagnosis Age At Onset Arthritis Unknown Social History Social History Element Codes Description Effective Dates Marital status Unknown Martell 11/02/2017 Number of children Unknown 3 08/29/[address]: 711407440 Never smoker 08/29/2015 Alcohol history Unknown occasionally [...] Fill Instructions Lovaza 1 gram capsule RxNorm: 745031 1 Capsule(s) PO BID 201701/26/2020 Active pravastatin 20 mg tablet RxNorm: 060154 TAKE 1 TABLET DAILY 11/01/2017 Inactive omeprazole 20 mg capsule,delayed release RxNorm: 007823 1 CAPSULE(S) PO QPM 09/22/2017 11/01/2017 Inactive pravastatin 20 mg tablet RxNorm: 487127 TAKE 1 TABLET DAILY 10/04/2017 Inactive pravastatin 20 mg tablet RxNorm: 338643 1 TABLET(S) PO DAILY 07/06/2017 Inactive pravastatin 20 mg tablet RxNorm: 519329 1 Tablet(s) PO daily 04/07/2017 Inactive pravastatin 20 mg tablet RxNorm: 215789 1 Tablet(s) PO daily 10/28/2016 Inactive omeprazole 20 mg capsule,delayed release RxNorm: 793033 1 Capsule(s) PO QPM 10/15/2016 09/21/2017 Inactive Vitamin B-12 oral RxNorm: 95023 oral No Start Date Active CoQ10 SG 100 100 mg-100 unit capsule RxNorm: 940193 1 Capsule(s) PO daily No Start Date 10/14/2016 Inactive loratadine 10 mg tablet RxNorm: 187540 1 Tablet(s) PO daily No Start Date 11/01/2017 Inactive pravastatin 10 mg tablet RxNorm: 598788 1 Tablet(s) PO daily No Start Date 11/02/2018 Inactive aspirin 81 mg tablet RxNorm: 082051 1 Tablet(s) PO daily No Start Date [...] 31.2 pg 07/06/2018 Cbc With Differential Ord2 [place]% 7.4 % 07/06/2018 Cbc With Differential Ord2 [...] 1.78 K/ul 07/06/2018 Cbc With Differential Ord2 [place] ABS# 0.4 K/ul 07/06/2018 Cbc With Differential Ord2 Eos ABS# 0.1 K/ul 07/06/2018 Cbc With Differential Ord2 Baso ABS# 0.0 K/ul 07/06/2018 Lipid Ord30 CHOL 262 mg/dL 07/06/2018 Lipid Ord30 HDL 85.0 mg/dl 07/06/2018 Lipid Ord30 TRIG 69 mg/dL 07/06/2018 Lipid Ord30 LDL 163 mg/dL 07/06/2018 Lipid Ord30 C/HDL 3.1 Ratio 07/06/2018 Comp Metabolic Sax333 NA 139 mEq/L 07/06/2018 Comp Metabolic Szl148 K 4.1 mEq/L 07/06/2018 Comp Metabolic Ind120 CL 102 mEq/L 07/06/2018 Comp Metabolic Jfc995 CO2 29.0 mEq/L 07/06/2018 Comp Metabolic Xom824 ANION GAP 12 07/06/2018 Comp Metabolic Kzm642 GLUCOSE 98 mg/dL 07/06/2018 Comp Metabolic Gbb192 Creat 0.7 mg/dL 07/06/2018 Comp Metabolic Hlp893 eGFR 82 ml/min/1.73m2 07/06/2018 Comp Metabolic Bjv325 BUN 14 mg/dL 07/06/2018 Comp Metabolic Hrb074 B/C Ratio 18.9 Ratio 07/06/2018 Comp Metabolic Bty497 CALCIUM 9.4 mg/dL 07/06/2018 Comp Metabolic Qfa325 ALK PHOS 50 U/L 07/06/2018 Comp Metabolic Lmm998 AST(SGOT) 18 U/L 07/06/2018 Comp Metabolic Zum357 ALT(SGPT) 8 U/L 07/06/2018 Comp Metabolic Dnw870 BILI T 0.6 mg/dL 07/06/2018 Comp Metabolic Iur928 ALBUMIN 4.3 g/dL 07/06/2018 Comp Metabolic Wjf215 TPRO 7.2 g/dL 07/06/2018 Comp Metabolic Yka468 GLOB 2.9 g/dL 07/06/2018 Comp Metabolic Pxg329 A/G Ratio 1.5 Ratio 07/06/2018 Comp Metabolic Oqo401 Osmo 278 mOsmo 07/06/2018 Lipid Ord30 CHOL 243 mg/dL 03/30/2017 Lipid Ord30 HDL 83.0 mg/dl 03/30/2017 Lipid Ord30 TRIG 70 mg/dL 03/30/2017 Lipid Ord30 LDL 146 mg/dL 03/30/2017 Lipid Ord30 C/HDL 2.9 Ratio 03/30/2017 Comp Metabolic Edd416 NA 137 mEq/L 10/20/2016 Comp Metabolic Azy742 K 4.6 mEq/L 10/20/2016 Comp Metabolic Dmj695 CL 102 mEq/L 10/20/2016 Comp Metabolic Hjh025 CO2 30.0 mEq/L 10/20/2016 Comp Metabolic Opo439 ANION GAP 10 10/20/2016 Comp Metabolic Otv785 GLUCOSE 97 mg/dL 10/20/2016 Comp Metabolic Yoc199 Creat 0.9 mg/dL 10/20/2016 Comp Metabolic Ccg041 eGFR 69 ml/min/1.73m2 10/20/2016 Comp Metabolic Zdj127 BUN 16 mg/dL 10/20/2016 Comp Metabolic Lox264 B/C Ratio 18.6 Ratio 10/20/2016 Comp Metabolic Tuo759 CALCIUM 9.4 mg/dL 10/20/2016 Comp Metabolic Lhy871 ALK PHOS 52 U/L 10/20/2016 Comp Metabolic Llj119 AST(SGOT) 18 U/L 10/20/2016 Comp Metabolic Ndw749 ALT(SGPT) 10 U/L 10/20/2016 Comp Metabolic Pze061 BILI T 0.7 mg/dL 10/20/2016 Comp Metabolic Jbz696 ALBUMIN 4.3 g/dL 10/20/2016 Comp Metabolic Aln107 TPRO 7.1 g/dL 10/20/2016 Comp Metabolic Moy752 GLOB 2.8 g/dL 10/20/2016 Comp Metabolic Phn406 A/G Ratio 1.5 Ratio 10/20/2016 Comp Metabolic Pkz685 Osmo 275 mOsmo 10/20/2016 Tsh Ord6 hTSH [...] 36.5 % 10/20/2016 Cbc With Differential Ord2 [place]% 6.5 % 10/20/2016 Cbc With Differential Ord2 [...] 2.23 K/ul 10/20/2016 Cbc With Differential Ord2 [place] ABS# 0.4 K/ul 10/20/2016 Cbc With Differential [...] dentition 09/13/2018 None Full Exam - General 1995 Ears/Nose/Throat oral cavity/pharynx/larynx Overall: oral mucosa clear [...] NO PRSV 4 FOX 3 YRS+ CPT-4: 68332 08/23/2018 FLU VAC NO PRSV 4 FOX 3 YRS+ CPT-4: 42623 08/31/2017 ADMIN INFLUENZA VIRUS VAC CPT-4: G0008 08/31/2017 ADMIN PNEUMOCOCCAL VACCINE SNOMED CT: 21263384 CPT-4: G0009 08/29/2015 PNEUMOCOCCAL VACC [address]: 12983039 CPT-4: 40612 08/29/2015 Vital Signs Date Vital 11/03/2018 Blood Pressure 1: 140/72 Code : 8480-6 BMI: 19.9 Code : 62084-8 Heart Rate 1 : 69 bpm Height: 5'2" SpO2: 98% Weight: 109 lbs 09/13/2018 Blood Pressure 1: 118/70 Code : 8480-6 BMI: 20.1 Code : 89569-3 Heart Rate 1 : 60 bpm Height: 5'2" Waist Measure (cm): 66 cm Weight: 110 lbs 11/02/2017 Blood Pressure 1: 118/70 Code : 8480-6 BMI: 19.9 Code : 06764-9 Heart Rate 1 : 71 bpm Height: 5'2" SpO2: 98% Weight: 109 lbs 10/15/2016 Blood Pressure 1: 136/78 Code : 8480-6 BMI: 21.0 Code : 49018-3 Heart Rate 1 : 66 bpm Height: 5'2" SpO2: 98% Weight: 115 lbs 08/29/2015 Blood Pressure 1: 142/86 Code : 8480-6 BMI: 20.1 Code : 18396-3 Heart Rate 1 : 72 bpm Height: [...] data Encounters Encounter Performer Location Codes Date ([id number]) 37432 EST. PATIENT, LEVEL III Diagnosis: Mixed hyperlipidemia[ICD10: E78.2] [facility] CPT-4: 86097 11/03/2018 ([id number]) 00445 EST. PATIENT, LEVEL III Diagnosis: Menopausal and female climacteric states[ICD10: N95.1] [facility] CPT-4: 17800 11/02/2017 ([id number]) Miscellaneous no charge Diagnosis: Impacted cerumen, right ear[ICD10: H61.21] [facility] CPT-4: 81949 10/20/2016 ([id number] EST. 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 11/03/2018 Patient Education: Patient Medication Summary Completed [...] care surrogate. 09/13/2018 Appointment: [phone] [facility] - Annual Wellness Visit 09/13/2018 Patient Education: [...] Summary Completed 11/02/2017 Appointment: Yadi Quiroz WPtel: [address] [place], [place] [phone] [facility] 10/22/2017 Appointment: Injection 08/31/2017 Patient [...] twice weekly 10/15/2016 Appointment: Yadi Quiroz WPtel: [address] [place], [place] [phone] [facility] 10/15/2016 Patient Education: Patient Medication Summary Completed 10/15/2016 Appointment: Yadi Quiroz WPtel: [address] [place], [place] [phone] [facility] 09/17/2016 Visit Plan: Abnormal MRA [...] clinic. 08/29/2015 [facility]ment[facility] [phone] [facility] [place] ([facility] New Patient 08/29/2015 Patient Education: [...]
--- OUTSIDE RECORDS SUMMARY | 2019-04-01 07:58 | XMS REPORT | CCD ---
Author Author [facility]adi [facility]z Organization [facility] Address [address] [place] [address] Phone Care Team Providers Care Black Puller Name Role Phone PP Unavailable CCM Unavailable Summary Purpose Interface Exchange Insurance Providers Payer name Policy type / Coverage type Covered alliance party ID Effective Begin Date Effective End Date WPS Medicare Part B Medicare Part B [id number] Unknown Unknown [facility] Medicare Part B [id number] Unknown Unknown Family history Mother Diagnosis Age At Onset Kidney cancer Unknown Father Diagnosis Age At Onset Arthritis Unknown Social History Social History Element Codes Description Effective Dates Marital status Unknown Martell 11/02/2017 Number of children Unknown 3 08/29/[address]: 162529450 Never smoker 08/29/2015 Alcohol history Unknown occasionally drinks alcohol 08/29/2015 Allergies, Adverse Reactions, Alerts Substance Reaction Codes Entered Date Inactivated Date Status Penicillin Unknown 08/29/2015 No Inactive Date Active Past Medical History Illness Codes Condition Status Onset Date Resolved Date Encounter for general adult medical examination without abnormal findings ICD-9: V70.0 ICD-10: Z00.00 Active 06/28/2018 Unknown Encounter for immunization ICD-9: V04.81 ICD-10: Z23 Active 08/31/2017 Unknown Mixed hyperlipidemia ICD-9: 272.2 ICD-10: E78.2 Active 06/28/2018 Unknown Menopausal and female climacteric states ICD-9: 627.2 ICD-10: N95.1 Active 11/02/2017 Unknown Impacted cerumen, right ear ICD-9: 380.4 ICD-10: H61.21 Active 10/19/2016 Unknown Encounter for gynecological examination (general) (routine ) without abnormal findings ICD-9: V72.31 ICD-10: Z01.419 Active 10/14/2016 Unknown Gastro-esophageal reflux disease without esophagitis ICD-9: 530.81 ICD-10: K21.9 Active 10/14/2016 Unknown Lichen sclerosus et atrophicus ICD-9: 701.0 ICD-10: L90.0 Active 10/14/2016 Unknown Abnormal findings on diagnostic imaging of skull and head, not elsewhere classified ICD-9: 793.0 ICD-10: R93.0 Active 08/28/2015 Unknown Encounter for immunization ICD-9: V03.82 ICD-10: Z23 Active 08/28/2015 Unknown Other allergic rhinitis ICD-9: 477.8 ICD-10: J30.89 Active 08/28/2015 Unknown Problems Condition Codes Effective Dates Condition Status Encounter for general adult medical examination without abnormal findings ICD-9: V70.0 ICD-10: Z00.00 06/28/2018 Active Encounter for immunization ICD-9: V04.81 ICD-10: Z23 08/31/2017 Active Mixed hyperlipidemia ICD-9: 272.2 ICD-10: E78.2 06/28/2018 Active Menopausal and female climacteric states ICD-9: 627.2 ICD-10: N95.1 11/02/2017 Active Impacted cerumen, right ear ICD-9: 380.4 ICD-10: H61.21 10/19/2016 Active Encounter for gynecological examination (general) (routine ) without abnormal findings ICD-9: V72.31 ICD-10: Z01.419 10/14/2016 Active Gastro-esophageal reflux disease without esophagitis ICD-9: 530.81 ICD-10: K21.9 10/14/2016 Active Lichen sclerosus et atrophicus ICD-9: 701.0 ICD-10: L90.0 10/14/2016 Active Abnormal findings on diagnostic imaging of skull and head, not elsewhere classified ICD-9: 793.0 ICD-10: R93.0 08/28/2015 Active Encounter for immunization ICD-9: V03.82 ICD-10: Z23 08/28/2015 Active Other allergic rhinitis ICD-9: 477.8 ICD-10: J30.89 08/28/2015 Active Medications Medication Codes Instructions Start Date Stop Date Status Fill Instructions pravastatin 20 mg tablet RxNorm: 120847 TAKE 1 TABLET DAILY 11/01/2017 Inactive omeprazole 20 mg capsule,delayed release RxNorm: 818231 1 CAPSULE(S) PO QPM 09/22/2017 11/01/2017 Inactive pravastatin 20 mg tablet RxNorm: 968756 TAKE 1 TABLET DAILY 10/04/2017 Inactive pravastatin 20 mg tablet RxNorm: 320292 1 TABLET(S) PO DAILY 07/06/2017 Inactive pravastatin 20 mg tablet RxNorm: 734744 1 Tablet(s) PO daily 04/07/2017 Inactive pravastatin 20 mg tablet RxNorm: 222961 1 Tablet(s) PO daily 10/28/2016 Inactive omeprazole 20 mg capsule,delayed release RxNorm: 047081 1 Capsule(s) PO QPM 10/15/2016 09/21/2017 Inactive pravastatin 10 mg tablet RxNorm: 726852 1 Tablet(s) PO daily No Start Date Active CoQ10 SG 100 100 mg-100 unit capsule RxNorm: 180910 1 Capsule(s) PO daily No Start Date 10/14/2016 Inactive loratadine 10 mg tablet RxNorm: 387639 1 Tablet(s) PO daily No Start Date 11/01/2017 Inactive aspirin 81 mg tablet RxNorm: 470453 1 Tablet(s) PO daily No Start Date [...] Assessments Condition Codes Effective Dates Encounter for general adult medical examination without abnormal findings ICD-10: Z00.00 ICD-9: V70.0 09/13/2018 Encounter for immunization ICD-10: Z23 ICD-9: V04.81 08/23/2018 Mixed hyperlipidemia ICD-10: E78.2 ICD-9: 272.2 06/28/2018 Menopausal and female climacteric states ICD-10: N95.1 [...] Visit Reason For Visit Effective Dates Notes Annual Medicare Wellness Exam 09/13/2018 vaccination against influenza 08/23/2018 well woman exam (65+ years) 11/02/2017 vaccination against influenza 08/31/2017 well woman exam (65+ years) 10/15/2016 vaccination against pneumonia 08/29/2015 Results Observation Observation Code Item Item Code Result Date Tsh Ord6 TSH (3rd IS) 4.54 uIU/mL 07/06/2018 Cbc With Differential Ord2 WBC 5.25 K/ul 07/06/2018 Cbc With Differential Ord2 RBC 4.23 M/ul 07/06/2018 Cbc With Differential Ord2 HGB 13.2 g/dl 07/06/2018 Cbc With Differential Ord2 Neut% 56.4 % 07/06/2018 Cbc With Differential Ord2 HCT 39.3 % 07/06/2018 Cbc With Differential Ord2 MCV 92.9 fl 07/06/2018 Cbc With Differential Ord2 Lymph% 33.9 % 07/06/2018 Cbc With Differential Ord2 MCH 31.2 pg 07/06/2018 Cbc With Differential Ord2 [place]% 7.4 % 07/06/2018 Cbc With Differential Ord2 [...] 1.78 K/ul 07/06/2018 Cbc With Differential Ord2 [place] ABS# 0.4 K/ul 07/06/2018 Cbc With Differential Ord2 Eos ABS# 0.1 K/ul 07/06/2018 Cbc With Differential Ord2 Baso ABS# 0.0 K/ul 07/06/2018 Lipid Ord30 CHOL 262 mg/dL 07/06/2018 Lipid Ord30 HDL 85.0 mg/dl 07/06/2018 Lipid Ord30 TRIG 69 mg/dL 07/06/2018 Lipid Ord30 LDL 163 mg/dL 07/06/2018 Lipid Ord30 C/HDL 3.1 Ratio 07/06/2018 Comp Metabolic Brs561 NA 139 mEq/L 07/06/2018 Comp Metabolic Eqq657 K 4.1 mEq/L 07/06/2018 Comp Metabolic Ntj008 CL 102 mEq/L 07/06/2018 Comp Metabolic Sox243 CO2 29.0 mEq/L 07/06/2018 Comp Metabolic Euo231 ANION GAP 12 07/06/2018 Comp Metabolic Klc094 GLUCOSE 98 mg/dL 07/06/2018 Comp Metabolic Yte919 Creat 0.7 mg/dL 07/06/2018 Comp Metabolic Mgh528 eGFR 82 ml/min/1.73m2 07/06/2018 Comp Metabolic Ozh146 BUN 14 mg/dL 07/06/2018 Comp Metabolic Lcr750 B/C Ratio 18.9 Ratio 07/06/2018 Comp Metabolic Btv564 CALCIUM 9.4 mg/dL 07/06/2018 Comp Metabolic Dwh316 ALK PHOS 50 U/L 07/06/2018 Comp Metabolic Lrk910 AST(SGOT) 18 U/L 07/06/2018 Comp Metabolic Fci498 ALT(SGPT) 8 U/L 07/06/2018 Comp Metabolic Gbs006 BILI T 0.6 mg/dL 07/06/2018 Comp Metabolic Rfl405 ALBUMIN 4.3 g/dL 07/06/2018 Comp Metabolic Xia366 TPRO 7.2 g/dL 07/06/2018 Comp Metabolic Yhm795 GLOB 2.9 g/dL 07/06/2018 Comp Metabolic Beg333 A/G Ratio 1.5 Ratio 07/06/2018 Comp Metabolic Zlc452 Osmo 278 mOsmo 07/06/2018 Lipid Ord30 CHOL 243 mg/dL 03/30/2017 Lipid Ord30 HDL 83.0 mg/dl 03/30/2017 Lipid Ord30 TRIG 70 mg/dL 03/30/2017 Lipid Ord30 LDL 146 mg/dL 03/30/2017 Lipid Ord30 C/HDL 2.9 Ratio 03/30/2017 Comp Metabolic Fyg958 NA 137 mEq/L 10/20/2016 Comp Metabolic Tam188 K 4.6 mEq/L 10/20/2016 Comp Metabolic Lgh241 CL 102 mEq/L 10/20/2016 Comp Metabolic Naa855 CO2 30.0 mEq/L 10/20/2016 Comp Metabolic Qeh453 ANION GAP 10 10/20/2016 Comp Metabolic Sfx578 GLUCOSE 97 mg/dL 10/20/2016 Comp Metabolic Vyf615 Creat 0.9 mg/dL 10/20/2016 Comp Metabolic Fpn118 eGFR 69 ml/min/1.73m2 10/20/2016 Comp Metabolic Vzm620 BUN 16 mg/dL 10/20/2016 Comp Metabolic Zbs634 B/C Ratio 18.6 Ratio 10/20/2016 Comp Metabolic Fcv755 CALCIUM 9.4 mg/dL 10/20/2016 Comp Metabolic Ftu142 ALK PHOS 52 U/L 10/20/2016 Comp Metabolic Raw783 AST(SGOT) 18 U/L 10/20/2016 Comp Metabolic Kte133 ALT(SGPT) 10 U/L 10/20/2016 Comp Metabolic Bhb611 BILI T 0.7 mg/dL 10/20/2016 Comp Metabolic Iay261 ALBUMIN 4.3 g/dL 10/20/2016 Comp Metabolic Sjg832 TPRO 7.1 g/dL 10/20/2016 Comp Metabolic Ksh707 GLOB 2.8 g/dL 10/20/2016 Comp Metabolic Lun181 A/G Ratio 1.5 Ratio 10/20/2016 Comp Metabolic Fnx731 Osmo 275 mOsmo 10/20/2016 Tsh Ord6 hTSH [...] 13.1 g/dl 10/20/2016 Cbc With Differential Ord2 Neut% 55.1 % 10/20/2016 Cbc With Differential Ord2 HCT 39.6 % 10/20/2016 Cbc With Differential Ord2 Lymph% 36.5 % 10/20/2016 Cbc With Differential Ord2 MCV 94.7 fl 10/20/2016 Cbc With Differential Ord2 [place]% 6.5 % 10/20/2016 Cbc With Differential Ord2 MCH 31.3 pg 10/20/2016 Cbc With Differential Ord2 MCHC 33.1 pg 10/20/2016 Cbc With Differential Ord2 Eos% 1.6 % 10/20/2016 Cbc With Differential Ord2 Baso% 0.3 % 10/20/2016 Cbc With Differential Ord2 PLT 221 K/ul 10/20/2016 Cbc With Differential Ord2 RDW 13.4 % 10/20/2016 Cbc With Differential Ord2 Neut ABS# 3.36 K/ul 10/20/2016 Cbc With Differential Ord2 Lymph ABS# 2.23 K/ul 10/20/2016 Cbc With Differential Ord2 [place] ABS# 0.4 K/ul 10/20/2016 Cbc With Differential [...] NO PRSV 4 FOX 3 YRS+ CPT-4: 90804 08/23/2018 FLU VAC NO PRSV 4 FOX 3 YRS+ CPT-4: 90877 08/31/2017 ADMIN INFLUENZA VIRUS VAC CPT-4: G0008 08/31/2017 ADMIN PNEUMOCOCCAL VACCINE SNOMED CT: 23125170 CPT-4: G0009 08/29/2015 PNEUMOCOCCAL VACC [address]: 52454957 CPT-4: 38455 08/29/2015 Vital Signs Date Vital 09/13/2018 Blood Pressure 1: 118/70 Code : 8480-6 BMI: 20.1 Code : 75328-3 Heart Rate 1 : 60 bpm Height: 5'2" Waist Measure (cm): 66 cm Weight: 110 lbs 11/02/2017 Blood Pressure 1: 118/70 Code : 8480-6 BMI: 19.9 Code : 76079-3 Heart Rate 1 : 71 bpm Height: 5'2" SpO2: 98% Weight: 109 lbs 10/15/2016 Blood Pressure 1: 136/78 Code : 8480-6 BMI: 21.0 Code : 22399-6 Heart Rate 1 : 66 bpm Height: 5'2" SpO2: 98% Weight: 115 lbs 08/29/2015 Blood Pressure 1: 142/86 Code : 8480-6 BMI: 20.1 Code : 29064-7 Heart Rate 1 : 72 bpm Height: 5'2" SpO2: 97% Weight: 110 lbs Functional Status No Functional Status data History of Present Illness Symptom Name Status Result Effective Date Notes Annual Medicare Wellness Exam Alcohol Use drinks [...] Annual Medicare Wellness Exam Handling Stress usually reinn effectively 09/13/2018 None Annual Medicare Wellness Exam [...] data Encounters Encounter Performer Location Codes Date ([id number]) 67430 EST. PATIENT, LEVEL III Diagnosis: Menopausal and female climacteric states[ICD10: N95.1] [facility] CPT-4: 71110 11/02/2017 ([id number]) Miscellaneous no charge Diagnosis: Impacted cerumen, right ear[ICD10: H61.21] [facility] CPT-4: 81239 10/20/2016 ([id number]) 32854 EST. 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 09/13/2018 Appointment: Wendy Villaseñor WPtel: [phone] [facility] [place] [address] - Annual Wellness Visit 09/13/2018 Patient Education: [...] Completed 11/02/2017 Appointment: Yadi Quiroz WPtel: [address] [facility] [facility] 10/22/2017 Appointment: Injection 08/31/2017 Patient [...] weekly 10/15/2016 Appointment: Yadi Quiroz WPtel: [phone] [facility] [facility] 10/15/2016 Patient Education: Patient Medication Summary Completed 10/15/2016 Appointment: Yadi Quiroz WPtel: [facility] [facility] 09/17/2016 Visit Plan: 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 - we will get you scheduled for a repeat MRA of the head to look at the small abnormality of vessel on the left side of your head. Allergies - continue with loratidine. Prevnar 13 shot given today in clinic. 08/29/2015 Appointment: Yadi Quiroz WPtel: [phone] [facility] [place] ([place]) New Patient 08/29/2015 Patient Education: [...] her DOPA paperwork for health care surrogate. use a dime sized amount into vaginal [...]
--- OUTSIDE RECORDS SUMMARY | 2019-04-01 07:59 | XMS REPORT | CCD ---
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 Name Role Phone PP Unavailable CCM Unavailable Summary Purpose Interface Exchange Insurance Providers Payer name Policy type / Coverage type Covered libertarian ID Effective Begin Date Effective End Date WPS Medicare Part B Medicare Part B [id number] Unknown Unknown [facility] Medicare Part B [id number] Unknown Unknown Family history Mother Diagnosis Age At Onset Kidney cancer Unknown Father Diagnosis Age At Onset Arthritis Unknown Social History Social History Element Codes Description Effective Dates Marital status Unknown [place] 11/02/2017 Number of children Unknown 3 08/29/[address]: 337409301 Never smoker 08/29/2015 Alcohol history Unknown occasionally [...] Fill Instructions pravastatin 20 mg tablet RxNorm: 604829 TAKE 1 TABLET DAILY 11/01/2017 Inactive omeprazole 20 mg capsule,delayed release RxNorm: 050646 1 CAPSULE(S) PO QPM 09/22/2017 11/01/2017 Inactive pravastatin 20 mg tablet RxNorm: 145229 TAKE 1 TABLET DAILY 10/04/2017 Inactive pravastatin 20 mg tablet RxNorm: 218401 1 TABLET(S) PO DAILY 07/06/2017 Inactive pravastatin 20 mg tablet RxNorm: 804710 1 Tablet(s) PO daily 04/07/2017 Inactive pravastatin 20 mg tablet RxNorm: 619533 1 Tablet(s) PO daily 10/28/2016 Inactive omeprazole 20 mg capsule,delayed release RxNorm: 216829 1 Capsule(s) PO QPM 10/15/2016 09/21/2017 Inactive pravastatin 10 mg tablet RxNorm: 208754 1 Tablet(s) PO daily No Start Date Active CoQ10 SG 100 100 mg-100 unit capsule RxNorm: 612762 1 Capsule(s) PO daily No Start Date 10/14/2016 Inactive loratadine 10 mg tablet RxNorm: 486155 1 Tablet(s) PO daily No Start Date 11/01/2017 Inactive aspirin 81 mg tablet RxNorm: 178314 1 Tablet(s) PO daily No Start Date [...] 31.2 pg 07/06/2018 Cbc With Differential Ord2 Schleicher% 7.4 % 07/06/2018 Cbc With Differential Ord2 [...] 1.78 K/ul 07/06/2018 Cbc With Differential Ord2 Schleicher ABS# 0.4 K/ul 07/06/2018 Cbc With Differential Ord2 Eos ABS# 0.1 K/ul 07/06/2018 Cbc With Differential Ord2 Baso ABS# 0.0 K/ul 07/06/2018 Lipid Ord30 CHOL 262 mg/dL 07/06/2018 Lipid Ord30 HDL 85.0 mg/dl 07/06/2018 Lipid Ord30 TRIG 69 mg/dL 07/06/2018 Lipid Ord30 LDL 163 mg/dL 07/06/2018 Lipid Ord30 C/HDL 3.1 Ratio 07/06/2018 Comp Metabolic Zrg946 NA 139 mEq/L 07/06/2018 Comp Metabolic Lky039 K 4.1 mEq/L 07/06/2018 Comp Metabolic Oom348 CL 102 mEq/L 07/06/2018 Comp Metabolic Xpe065 CO2 29.0 mEq/L 07/06/2018 Comp Metabolic Wxg355 ANION GAP 12 07/06/2018 Comp Metabolic Yhi166 GLUCOSE 98 mg/dL 07/06/2018 Comp Metabolic Bmw573 Creat 0.7 mg/dL 07/06/2018 Comp Metabolic Jok052 eGFR 82 ml/min/1.73m2 07/06/2018 Comp Metabolic Wzv380 BUN 14 mg/dL 07/06/2018 Comp Metabolic Ulm501 B/C Ratio 18.9 Ratio 07/06/2018 Comp Metabolic Wqy646 CALCIUM 9.4 mg/dL 07/06/2018 Comp Metabolic Srl733 ALK PHOS 50 U/L 07/06/2018 Comp Metabolic Lbl838 AST(SGOT) 18 U/L 07/06/2018 Comp Metabolic Vtl010 ALT(SGPT) 8 U/L 07/06/2018 Comp Metabolic Zel390 BILI T 0.6 mg/dL 07/06/2018 Comp Metabolic Qxm715 ALBUMIN 4.3 g/dL 07/06/2018 Comp Metabolic Hcj967 TPRO 7.2 g/dL 07/06/2018 Comp Metabolic Ofv098 GLOB 2.9 g/dL 07/06/2018 Comp Metabolic Oul101 A/G Ratio 1.5 Ratio 07/06/2018 Comp Metabolic Asa369 Osmo 278 mOsmo 07/06/2018 Lipid Ord30 CHOL 243 mg/dL 03/30/2017 Lipid Ord30 HDL 83.0 mg/dl 03/30/2017 Lipid Ord30 TRIG 70 mg/dL 03/30/2017 Lipid Ord30 LDL 146 mg/dL 03/30/2017 Lipid Ord30 C/HDL 2.9 Ratio 03/30/2017 Comp Metabolic Ldw078 NA 137 mEq/L 10/20/2016 Comp Metabolic Qta480 K 4.6 mEq/L 10/20/2016 Comp Metabolic Zqo387 CL 102 mEq/L 10/20/2016 Comp Metabolic Omr541 CO2 30.0 mEq/L 10/20/2016 Comp Metabolic Lca081 ANION GAP 10 10/20/2016 Comp Metabolic Tmc882 GLUCOSE 97 mg/dL 10/20/2016 Comp Metabolic Jnv061 Creat 0.9 mg/dL 10/20/2016 Comp Metabolic Vzn975 eGFR 69 ml/min/1.73m2 10/20/2016 Comp Metabolic Bwg822 BUN 16 mg/dL 10/20/2016 Comp Metabolic Qcf365 B/C Ratio 18.6 Ratio 10/20/2016 Comp Metabolic Dfs400 CALCIUM 9.4 mg/dL 10/20/2016 Comp Metabolic Qxf219 ALK PHOS 52 U/L 10/20/2016 Comp Metabolic Iog292 AST(SGOT) 18 U/L 10/20/2016 Comp Metabolic Wao980 ALT(SGPT) 10 U/L 10/20/2016 Comp Metabolic Pfb309 BILI T 0.7 mg/dL 10/20/2016 Comp Metabolic Hjt099 ALBUMIN 4.3 g/dL 10/20/2016 Comp Metabolic Zxb067 TPRO 7.1 g/dL 10/20/2016 Comp Metabolic Uxk693 GLOB 2.8 g/dL 10/20/2016 Comp Metabolic Igy500 A/G Ratio 1.5 Ratio 10/20/2016 Comp Metabolic Ezr964 Osmo 275 mOsmo 10/20/2016 Tsh Ord6 hTSH [...] 94.7 fl 10/20/2016 Cbc With Differential Ord2 Schleicher% 6.5 % 10/20/2016 Cbc With Differential Ord2 [...] 2.23 K/ul 10/20/2016 Cbc With Differential Ord2 Schleicher ABS# 0.4 K/ul 10/20/2016 Cbc With Differential [...] NO PRSV 4 FOX 3 YRS+ CPT-4: 87005 08/23/2018 FLU VAC NO PRSV 4 FOX 3 YRS+ CPT-4: 11940 08/31/2017 ADMIN INFLUENZA VIRUS VAC CPT-4: G0008 08/31/2017 ADMIN PNEUMOCOCCAL VACCINE SNOMED CT: 02965759 CPT-4: G0009 08/29/2015 PNEUMOCOCCAL VACC [address]: 50816406 CPT-4: 55098 08/29/2015 Vital Signs Date Vital 09/13/2018 Blood Pressure 1: 118/70 Code : 8480-6 BMI: 20.1 Code : 52129-2 Heart Rate 1 : 60 bpm Height: 5'2" Waist Measure (cm): 66 cm Weight: 110 lbs 11/02/2017 Blood Pressure 1: 118/70 Code : 8480-6 BMI: 19.9 Code : 66813-7 Heart Rate 1 : 71 bpm Height: 5'2" SpO2: 98% Weight: 109 lbs 10/15/2016 Blood Pressure 1: 136/78 Code : 8480-6 BMI: 21.0 Code : 17075-3 Heart Rate 1 : 66 bpm Height: 5'2" SpO2: 98% Weight: 115 lbs 08/29/2015 Blood Pressure 1: 142/86 Code : 8480-6 BMI: 20.1 Code : 96707-3 Heart Rate 1 : 72 bpm Height: [...] data Encounters Encounter Performer Location Codes Date (70090) 07641 EST. PATIENT, LEVEL III Diagnosis: Menopausal and female climacteric states[ICD10: N95.1] [facility] CPT-4: 57276 11/02/2017 ([id number]) Miscellaneous no charge Diagnosis: Impacted cerumen, right ear[ICD10: H61.21] [facility] CPT-4: 83980 10/20/2016 ([id number]) 49171 EST. 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] [facility] CPT-4: 07479 10/15/2016 ([id number]) OFFICE VISIT, NEW - LEVEL 4 Diagnosis: Abnormal findings on diagnostic imaging of skull and head, not elsewhere classified[ICD10: R93.0] Diagnosis: Other allergic rhinitis[ICD10: J30.89] [facility] CPT-4: 87561 08/29/2015 Plan of Care Planned Activity Notes [...] DOPA paperwork for health care surrogate. 09/13/2018 Patient Education: Patient Medication Summary Completed [...] Completed 11/02/2017 [facility] [phone] [facility] [facility] 10/22/2017 Appointment: Injection 08/31/2017 Patient [...] weekly 10/15/2016 Appointment: Yadi Quiroz WPtel: [phone] [facility] [facility] 10/15/2016 Patient Education: Patient Medication Summary Completed 10/15/2016 Appointment: Yadi Quiroz WPtel: [facility] [facility] 09/17/2016 Visit Plan: Abnormal [...] in clinic. 08/29/2015 Appointment: Renea Quirozy WPtel: [facility] [place] ([place]) New Patient 08/29/2015 Patient [...]
--- OUTSIDE RECORDS SUMMARY | 2019-04-01 07:59 | XMS REPORT ---
Author Author FELICITY NG Organization [employer] Address Unknown Phone Unavailable Care Team Providers Care Wrapper Sheeter Name Role Phone FELICITY NG CP Unavailable Allergies No Known Allergies Problems Problem Type Condition Code Onset Dates Condition Status Assessment Flu vaccine need Z23 Active Medications No Known Medications Procedures Procedure Coding System Code Date SINGLE IMMUNIZATION ADMIN CPT-4 82859 Sep 05, 2015 FLUARIX QUAD (3 & UP)-GSK CPT-4 41755 Sep 05, 2015 Results No Known Results Immunizations Vaccine Administration Date FLUARIX QUAD (3 & UP)-GSK-2014Sep 05, 2015 Summary Purpose [employer] Submission
--- OUTSIDE RECORDS SUMMARY | 2019-04-01 07:59 | XMS REPORT | Continuity of Care Document ---
Author Organization Unknown Address Unknown Allergies Active Description Code Type Severity Reaction Onset Reported/Identified Relationship to Patient Clinical Status Yes ENVIRONMENT ENVIRONMENT Mild N/A 07/22/2014 Yes Penicillins [id number] Drug Allergy Unknown N/A 07/22/2014 Medications There is no data. 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 09/21/2012 Ot V76.51 SCREEN MAL NEOP-COLON 09/24/2013 GAYATRI GALLEGOS DO Ot 008.45 INTESTINAL INFECTION DUE TO CLOSTRIDIUM 09/24/2013 GAYATRI GALLEGOS DO Ot 276.1 HYPOSMOLALITY 09/24/2013 GAYATRI GALLEGOS DO Ot 787.91 DIARRHEA 12/18/2013 COLETTE CHOI MD Ot 787.91 DIARRHEA 07/22/2014 GAYATRI GALLEGOS DO Ot 784.0 HEADACHE 12/19/2014 Ot 719.46 12/19/2014 Ot 786.2 12/19/2014 Ot 793.19 12/19/2014 Ot V67.9 12/19/2014 Ot 793.19 12/19/2014 Ot 793.99 12/19/2014 Ot V67.9 12/19/2014 Ot 536.8 12/19/2014 Ot 564.00 12/19/2014 Ot 573.8 12/19/2014 Ot V72.84 12/19/2014 Ot 787.91 12/19/2014 CHANTEL COREA DO Ot 493.90 12/19/2014 COLETTE CHOI MD Ot 784.0 12/19/2014 COLETTE CHOI MD Ot 437.3 09/26/2015 PATEL LINDA MD Ot I67.1 10/18/2015 PATEL LINDA MD Ot I67.1 08/12/2016 Ot 786.2 COUGH 08/12/2016 Ot 793.19 OTHER NONSPECIFIC ABNORMAL FINDING OF INGE 08/12/2016 Ot V67.9 FOLLOW-UP EXAM NOS 08/12/2016 Ot 793.19 OTHER NONSPECIFIC ABNORMAL FINDING OF INGE 08/12/2016 Ot 793.99 [facility] ( [facility]N) FINDINGS RADIOLOGICAL O 08/12/2016 Ot V67.9 FOLLOW-UP EXAM NOS 08/12/2016 Ot 536.8 STOMACH FUNCTION DIS NEC 08/12/2016 Ot 564.00 UNSPEC CONSTIPATION 08/12/2016 Ot 573.8 LIVER DISORDERS NEC 08/12/2016 Ot V72.84 EXAM PRE- OPERATIVE NOS 08/12/2016 Ot 787.91 DIARRHEA 08/12/2016 CHANTEL COREA DO Ot 493.90 ASTHMA, UNSPECIFIED 08/12/2016 COLETTE CHOI MD Ot 784.0 HEADACHE 08/12/2016 COLETTE CHOI MD Ot 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 08/12/2016 PATEL LINDA MD Ot I67.1 CEREBRAL ANEURYSM, NONRUPTURED 08/12/2016 Ot 786.2 COUGH 08/12/2016 Ot 793.19 OTHER NONSPECIFIC ABNORMAL FINDING OF INGE 08/12/2016 Ot V67.9 FOLLOW-UP EXAM NOS 08/12/2016 Ot 793.19 OTHER NONSPECIFIC ABNORMAL FINDING OF INGE 08/12/2016 Ot 793.99 [facility] ( ABN) FINDINGS RADIOLOGICAL O 08/12/2016 Ot V67.9 FOLLOW-UP EXAM NOS 08/12/2016 Ot 536.8 STOMACH FUNCTION DIS NEC 08/12/2016 Ot 564.00 UNSPEC CONSTIPATION 08/12/2016 Ot 573.8 LIVER DISORDERS NEC 08/12/2016 Ot V72.84 EXAM PRE- OPERATIVE NOS 08/12/2016 Ot 787.91 DIARRHEA 08/12/2016 CHANTEL COREA DO Ot 493.90 ASTHMA, UNSPECIFIED 08/12/2016 COLETTE CHOI MD Ot 784.0 HEADACHE 08/12/2016 COLETTE CHOI MD Ot 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 08/12/2016 PATEL LINDA MD Ot I67.1 CEREBRAL ANEURYSM, NONRUPTURED 08/13/2016 Ot 786.2 COUGH 08/13/2016 Ot 793.19 OTHER NONSPECIFIC ABNORMAL FINDING OF INGE 08/13/2016 Ot V67.9 FOLLOW-UP EXAM NOS 08/13/2016 Ot 793.19 OTHER NONSPECIFIC ABNORMAL FINDING OF INGE 08/13/2016 Ot 793.99 [facility] ( ABN) FINDINGS RADIOLOGICAL O 08/13/2016 Ot V67.9 FOLLOW-UP EXAM NOS 08/13/2016 Ot 536.8 STOMACH FUNCTION DIS NEC 08/13/2016 Ot 564.00 UNSPEC CONSTIPATION 08/13/2016 Ot 573.8 LIVER DISORDERS NEC 08/13/2016 Ot V72.84 EXAM PRE- OPERATIVE NOS 08/13/2016 Ot 787.91 DIARRHEA 08/13/2016 CHANTEL COREA DO Ot 493.90 ASTHMA, UNSPECIFIED 08/13/2016 COLETTE CHOI MD Ot 784.0 HEADACHE 08/13/2016 COLETTE CHOI MD Ot 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 08/13/2016 PATEL LINDA MD Ot I67.1 CEREBRAL ANEURYSM, NONRUPTURED 07/01/2017 Ot 786.2 COUGH 07/01/2017 Ot 793.19 OTHER NONSPECIFIC ABNORMAL FINDING OF INGE 07/01/2017 Ot V67.9 FOLLOW-UP EXAM NOS 07/01/2017 Ot 793.19 OTHER NONSPECIFIC ABNORMAL FINDING OF INGE 07/01/2017 Ot 793.99 [facility] ( ABN) FINDINGS RADIOLOGICAL O 07/01/2017 Ot V67.9 FOLLOW-UP EXAM NOS 07/01/2017 Ot 536.8 STOMACH FUNCTION DIS NEC 07/01/2017 Ot 564.00 UNSPEC CONSTIPATION 07/01/2017 Ot 573.8 LIVER DISORDERS NEC 07/01/2017 Ot V72.84 EXAM PRE- OPERATIVE NOS 07/01/2017 Ot 787.91 DIARRHEA 07/01/2017 CHANTEL COREA DO Ot 493.90 ASTHMA, UNSPECIFIED 07/01/2017 COLETTE CHOI MD Ot 784.0 HEADACHE 07/01/2017 COLETTE CHOI MD Ot 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 07/01/2017 PATEL LINDA MD Ot I67.1 CEREBRAL ANEURYSM, NONRUPTURED 09/24/2017 PATEL LINDA MD Ot I77.89 OTHER SPECIFIED DISORDERS OF ARTERIES AN 10/14/2017 PATEL LINDA MD Ot I77.89 OTHER SPECIFIED DISORDERS OF ARTERIES AN 11/02/2017 PATEL LINDA MD Ot I77.89 OTHER SPECIFIED DISORDERS OF ARTERIES AN 03/14/2019 MARKY TREADWELL Ot Z12.31 ENCNTR SCREEN MAMMOGRAM FOR MALIGNANT NE 03/20/2019 MARKY TREADWELL Ot Z12.31 ENCNTR SCREEN MAMMOGRAM FOR MALIGNANT NE 03/28/2019 TOYA LLOYD MD Ot Z01.818 ENCOUNTER FOR OTHER PREPROCEDURAL EXAMIN 03/31/2019 TOYA LLOYD MD Ot Z01.818 ENCOUNTER FOR OTHER PREPROCEDURAL EXAMIN Procedures There is no data. Results There is no data. Encounters ACCT No. Visit Date/Time Discharge Status Pt. 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 [id number] 09/17/2017 08:10:00 09/17/2017 23:59:59 CLS Preadmit PATEL LINDA MD [facility] RAD HX OF ANEURYSM [id number] 09/04/2015 08:53:00 09/04/2015 23:59:59 CLS Outpatient PATEL LINDA MD [facility] RAD 2 MM ANYERISM BRAIN [id number] 08/24/2014 14:17:00 08/24/2014 23:59:59 CLS Outpatient COLETTE CHOI MD [facility] RAD 3MM ANURSYM [id number] 08/07/2014 11:44:00 08/07/2014 23:59:59 CLS Outpatient COLETTE CHOI MD [facility] RAD WORST HEADACHE EVER [id number] 07/22/2014 16:15:00 07/22/2014 17:45:00 DIS Emergency ELGAYATRI Yeboah DO [facility] ER STROKE LIKE SYMPTOMS [id number] 05/08/2014 12:18:00 05/08/2014 23:59:59 CLS Outpatient CHANTEL COREA DO [place] [facility] RAD ASTHMA,COUGH [id number] 09/19/2013 14:48:00 12/18/2013 00:01:00 DIS Outpatient STEPH MONREAL, COLETTE Sheets [facility] LAB DIARRHEA [id number] 09/24/2013 14:44:00 09/24/2013 17:19:00 DIS Emergency GAYATRI GALLEGOS DO [facility] ER DIARRHEA, WEAKNESS [id number] 04/01/2019 09:15:00 PEN Preadmit GABINO MONRELA, TOYA Odonnell [facility] ENDO HX COLON CANCER [id number] 12/19/2013 00:00:00 Document Registration [id number] 09/21/2012 07:23:00 Document Registration [id number] 09/15/2012 07:51:00 Document Registration [id number] 09/10/2012 13:58:00 Document Registration [id number] 06/01/2012 10:19:00 Document Registration [id number] 05/28/2012 12:26:00 Document Registration [id number] 05/12/2012 09:11:00 Document Registration [id number] 07/26/2010 14:51:00 Document Registration [id number] 09/16/2017 09:54:37 09/16/2017 23:59:59 CLS Outpatient
[2019-04-01] MEDS ORDERED: MIDAZOLAM 2 MG/2 ML (VERSED) VIAL IVP ONE (08:00)
[2019-04-01] MEDS ORDERED: fentaNYL INJECTION 100 MCG/2 ML AMP IVP ONE (08:00)
[2019-04-01] MEDS ORDERED: LIDOCAINE JELLY 2% 6 ML SYRINGE MM PRN (08:00)
[2019-04-01 08:26] VITALS: BP 158/70
[2019-04-01] MEDS ORDERED: fentaNYL INJECTION 100 MCG/2 ML AMP ONE (08:30)
[2019-04-01] MEDS ORDERED: LIDOCAINE JELLY 2% 6 ML SYRINGE ONE (08:30)
[2019-04-01] MEDS ORDERED: MIDAZOLAM 2 MG/2 ML (VERSED) VIAL ONE ×2 (08:30)
[2019-04-01 09:20] VITALS: BP 137/63
--- NOTE | 2019-04-01 09:22 | Pre-Op Note & Conscious Sedat ---
Pre-Operative Progress Note H&P Reviewed The H&P was reviewed, patient examined and no changes noted. Date H&P Reviewed: April 01, 2019 Time H&P Reviewed: 08:00 Conscious Sedation Pre-Proced ASA Score 1 For ASA 3 and 4: Consider anesthesia and medical clearance. Also, for patients with a history of failed moderate sedation consider anesthesia. Airway Lungs Heart ASA score ASA 1: a normal healthy patient ASA 2: a patient with a mild systemic disease (mid diabetes, controlled hypertension, obesity ASA 3: a patient with a severe systemic disease that limits activity (angina , COPD, prior Myocardial infarction) ASA 4: a patient with an incapacitating disease that is a constant threat to life (CHF, renal failure) ASA 5: a moribund patient not expected to survive 24 hrs. (ruptured aneurysm) ASA 6: a declared brain- patient whose organs are being harvested. For emergent operations, add the letter E after the classification Mallampati Classification Grade 2 Sedation Plan Analgesia, Amnesia, Plan communicated to team members, Discussed options with patient/fam, Discussed risks with patient/fam The patient is an appropriate candidate to undergo the planned procedure, sedation, and anesthesia. The patient immediately re-assessed prior to indication. TOYA LLOYD MD April 01, 2019 09:22
[2019-04-01 09:50] VITALS: BP 165/74
[2019-04-01 10:05] VITALS: BP 165/74
--- NOTE | 2019-04-01 13:51 | OPERATIVE REPORT ---
DATE OF SERVICE: 04/01/2019 COLONOSCOPY SUMMARY INDICATION FOR THE PROCEDURE: Surveillance colonoscopy due to past history of colon cancer. The patient was placed in the left lateral decubitus position. Prior to undergoing colonoscopy, digital rectal evaluation was performed. Anal sphincter tone was normal and the perianal reflexes intact. No abnormalities were noted on digital inspection of anal canal or distal rectal vault. The colonoscope was then inserted into the rectum under direct visualization and advanced to the ileocecal valve and cecum. Careful inspection was made as the scope was withdrawn. The quality of the prep was good. FINDINGS: There is no evidence for internal or external hemorrhoids and the rectum was unremarkable. There appeared to be a well-healed resection margin in the sigmoid colon with no evidence for local recurrence. Remainder of the sigmoid colon, descending colon, splenic flexure, transverse colon, ascending colon and cecum were unremarkable with no evidence for neoplasia, diverticular disease or vascular malformation. ASSESSMENT: Normal colonoscopy to the cecum with no evidence for neoplasia or recurrence of colon cancer. Considering that it has been a little over 20 years since her original diagnosis with no subsequent evidence for neoplasia would advocate consideration for repeat surveillance colonoscopy in 5 years. I thank you for the referral of this pleasant lady. Sincerely, Job ID: [id number] DocumentID: [id number] Dictated Date: 04/01/2019 09:30:38 Acid Crane Operator Date: 04/01/2019 13:50:23 Dictated By: TOYA LLOYD MD MTDD
== END 2019-04-01 10:05 | disposition home or self-care (01) ==
LOC: ENDO 07:51
PROVIDERS: ATTEND Internal Medicine
DX: Z12.11 Encounter for screening for malignant neoplasm of colon (principal); Z85.038 Personal history of other malignant neoplasm of large intestine; I10 Essential (primary) hypertension; Z79.899 Other long term (current) drug therapy

== ENCOUNTER 2021-09-04 15:40 | Emergency (ER) | payer MEDICARE, OTHER ==
[~2021-09-04] VITALS: Ht 157 cm; Wt 52.0 kg
[2021-09-04 16:10] LABS: BASOPHILS % (AUTO) 1 % (0-10); CHLORIDE 102 MMOL/L (98-107); EOSINOPHILS # (AUTO) 0.1 10^3/uL (0.0-0.3); EOSINOPHILS % (AUTO) 1 % (0-10); HEMATOCRIT 33 % (35-52); HEMOGLOBIN 10.8 g/dL (11.5-16.0); LYMPHOCYTES % (AUTO) 53 % (12-44); MEAN CORPUSCULAR HEMOGLOBIN 31 pg (25-34); MEAN CORPUSCULAR HGB CONC 33 g/dL (32-36); MEAN CORPUSCULAR VOLUME 95 fL (80-99); MEAN PLATELET VOLUME 9.2 fL (9.0-12.2); MONOCYTES # (AUTO) 0.4 10^3/uL (0.0-1.0); MONOCYTES % (AUTO) 5 % (0-12); NEUTROPHILS % (AUTO) 40 % (42-75); PLATELET COUNT 181 10^3/uL (130-400); POTASSIUM 3.4 MMOL/L (3.6-5.0); SODIUM 137 MMOL/L (135-145); WHITE BLOOD COUNT 7.4 10^3/uL (4.3-11.0)
[2021-09-04 16:11] LABS: CALCIUM 9.4 MG/DL (8.5-10.1)
[2021-09-04 16:12] LABS: GLUCOSE 143 MG/DL (70-105); PROTHROMBIN TIME PATIENT 13.5 SEC (12.2-14.7)
[2021-09-04 16:13] LABS: CARBON DIOXIDE 23 MMOL/L (21-32); TOTAL PROTEIN 6.8 GM/DL (6.4-8.2)
[2021-09-04 16:14] LABS: BILIRUBIN,TOTAL 0.3 MG/DL (0.1-1.0)
[2021-09-04 16:16] LABS: ALKALINE PHOSPHATASE 44 U/L (40-136); CREATININE SERUM 1.02 MG/DL (0.60-1.30); GFR ESTIMATED 53
[2021-09-04 16:17] LABS: BUN/CREATININE RATIO 20
[2021-09-04 16:19] LABS: ALANINE AMINOTRANSFERASE 13 U/L (0-55); LIPASE 14 U/L (8-78)
[2021-09-04 17:53] LABS: BILIRUBIN,URINE NEGATIVE (NEGATIVE); CLARITY,URINE CLEAR; COLOR,URINE YELLOW; GLUCOSE, URINE (UA) NEGATIVE (NEGATIVE); KETONES,URINE TRACE (NEGATIVE); LEUKOCYTE ESTERASE ,URINE NEGATIVE (NEGATIVE); NITRITE,URINE NEGATIVE (NEGATIVE); PH,URINE 7.5 (5-9); PROTEIN,URINE 2+ (NEGATIVE)
[2021-09-04 18:08] LABS: BACTERIA,URINE NEGATIVE /HPF; SQUAMOUS EPITHELIAL CELL,UR RARE /HPF
[2021-09-04 18:15] LABS: AMPHETAMINE SCREEN, URINE NEGATIVE (NEGATIVE); BARBITURATE SCREEN URINE NEGATIVE (NEGATIVE); BENZODIAZEPINES SCREEN URINE NEGATIVE (NEGATIVE); CANNABINOID SCREEN, URINE NEGATIVE (NEGATIVE); COCAINE SCREEN URINE NEGATIVE (NEGATIVE); METHADONE STAT NEGATIVE (NEGATIVE); METHAMPHETAMINE SCREEN URINE S NEGATIVE (NEGATIVE); OPIATE SCREEN URINE NEGATIVE (NEGATIVE); OXYCODONE STAT NEGATIVE (NEGATIVE); PROPOXYPHENE STAT NEGATIVE (NEGATIVE); TRICYCLIC ANTIDEPRESSANTS SCRE NEGATIVE (NEGATIVE)
--- NOTE | 2021-09-04 20:29 | ED General ---
General Chief Complaint: Overdose Stated Complaint: NEAR SYNCOPE Nursing Triage Note: PT ARRIVES TO ER BY [facility] FROM A FRIENDS HOUSE WITH C/I DIZZINESS, NEAR SYNCOPE WITHOUT FALLING, AND VOMITTING X2. PT STATES SHE ATE 3 WILD MUSHROOMS ABOUT 30 MIN PRIOR TO EMS ARRIVAL Source of Information: Patient, EMS Exam Limitations: No Limitations History of Present Illness Date Seen by Provider: Sep 04, 2021 Time Seen by Provider: 15:42 Initial Comments This 76 year old woman arrives via EMS with syncope, nausea and vomiting. She ate 2 different types of mushrooms that she found in her yard prior to arrival. The first was umbrella shaped and light in color. It was found beneath a redbud tree in some compost. It was about 3 inches tall and 3 inches wide. She took 2 small bites of it after it was cooked. That was about 1300. The second was a cluster of round mushrooms found on the ground without stems. They had the appearance of small potatoes. Those were cooked and eaten around 1400. She arrived to the ER about an hour and 45 minutes later with complaints of nausea, vomiting, vision changes, and syncope. She states symptoms started when she was driving to her friend's house. She said her vision became dark as though a storm system had rolled in. She was then feeling ill and lightheaded but she continued to visit with her friend so as to not be reviewed. She eventually had a syncopal episode and collapsed. She denies any injury. EMS was summoned to her friend's home. EMS reported she was bradycardic and hypotensive on their initial assessment. IV fluids were initiated. Symptoms were improving with IV fluids and Zofran administered by EMS. Patient denies any chest pain or shortness of breath. Her friend noted that she was quite diaphoretic at the time. She is alert, oriented, and talkative on arrival. Allergies and Home Medications Allergies Coded Allergies: Penicillins (Unverified Allergy, Unknown, 07/22/14) Uncoded Allergies: ENVIRONMENT (Allergy, Mild, 07/22/14) Patient Home Medication List Home Medication List Reviewed: Yes No Active Prescriptions or Reported Meds Review of Systems Review of Systems Constitutional: see HPI EENTM: see HPI Respiratory: no symptoms reported Cardiovascular: see HPI Gastrointestinal: see HPI Genitourinary: no symptoms reported : No Musculoskeletal: no symptoms reported Skin: see HPI Psychiatric/Neurological: See HPI Hematologic/Lymphatic: No Symptoms Reported Immunological/Allergic: no symptoms reported Past Giaiwfs-Sljsft-Puumbi Hx Patient Social History Tobacco Use?: No Substance use?: No Alcohol Use?: No Pt feels they are or have been: No Immunizations Up To Date Tetanus Booster (TDap): Unknown Influenza Vaccine Up-to-Date: No; Not Current First/Initial COVID19 Vaccinat: NOV 2020 Second COVID19 Vaccination Jose: DEC 2020 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: [place] Seasonal Allergies Seasonal Allergies: No Past Medical History Surgeries: Yes (COLON RESECTION, BREAST BX) Hysterectomy Respiratory: Yes Asthma Currently Using CPAP: No Currently Using BIPAP: No Cardiac: No Neurological: No Female Reproductive Disorders: Denies Sexually Transmitted Disease: Yes HIV/AIDS: No Genitourinary: No 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 0.0oz. 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 Skin: Normal Color, Warm/Dry Progress/Results/Core Measures Suspected Sepsis SIRS Temperature: Pulse: 59 Respiratory Rate: 18 Laboratory Tests 09/04/21 15:43: White Blood Count 7.4 Blood Pressure 92 /40 Mean: 70 Laboratory Tests 10/20/21 15:43: Creatinine 1.02, INR Comment 1.0, Platelet Count 181, Total Bilirubin 0.3 Results/Orders Lab Results Laboratory Tests Test 09/04/21 15:43 09/04/21 17:33 Range/Units White Blood Count 7.4 4.3-11.0 10^3/uL Red Blood Count 3.44 L 3.80-5.11 10^6/uL Hemoglobin 10.8 L 11.5-16.0 g/dL Hematocrit 33 L 35-52 % Mean Corpuscular Volume 95 80-99 fL Mean Corpuscular Hemoglobin 31 25-34 pg Mean Corpuscular Hemoglobin Concent 33 32-36 g/dL Red Cell Distribution Width 12.6 10.0-14.5 % Platelet Count 181 130-400 10^3/uL Mean Platelet Volume 9.2 9.0-12.2 fL Immature Granulocyte % (Auto) 0 % Neutrophils (%) (Auto) 40 L 42-75 % Lymphocytes (%) (Auto) 53 H 12-44 % Monocytes (%) (Auto) 5 0-12 % Eosinophils (%) (Auto) 1 0-10 % Basophils (%) (Auto) 1 0-10 % Neutrophils # (Auto) 3.0 1.8-7.8 10^3/uL Lymphocytes # (Auto) 4.0 1.0-4.0 10^3/uL Monocytes # (Auto) 0.4 0.0-1.0 10^3/uL Eosinophils # (Auto) 0.1 0.0-0.3 10^3/uL Basophils # (Auto) 0.0 0.0-0.1 10^3/uL Immature Granulocyte # (Auto) 0.0 0.0-0.1 10^3/uL Prothrombin Time 13.5 12.2-14.7 SEC INR Comment 1.0 0.8-1.4 Sodium Level 137 135-145 MMOL/L Potassium Level 3.4 L 3.6-5.0 MMOL/L Chloride Level 102 98-107 MMOL/L Carbon Dioxide Level 23 21-32 MMOL/L Anion Gap 12 5-14 MMOL/L Blood Urea Nitrogen 20 H 7-18 MG/DL Creatinine 1.02 0.60-1.30 MG/DL Estimat Glomerular Filtration Rate 53 BUN/Creatinine Ratio 20 Glucose Level 143 H 70-105 MG/DL Calcium Level 9.4 8.5-10.1 MG/DL Corrected Calcium 9.4 8.5-10.1 MG/DL Total Bilirubin 0.3 0.1-1.0 MG/DL Aspartate Amino Transf (AST/SGOT) 22 5-34 U/L Alanine Aminotransferase (ALT/SGPT) 13 0-55 U/L Alkaline Phosphatase 44 40-136 U/L Total Protein 6.8 6.4-8.2 GM/DL Albumin 4.0 3.2-4.5 GM/DL Lipase 14 8-78 U/L Serum Alcohol < 10 <10 MG/DL Urine Color YELLOW Urine Clarity CLEAR Urine pH 7.5 5-9 Urine Specific [place] 1.015 L 1.016-1.022 Urine Protein 2+ H NEGATIVE Urine Glucose (UA) NEGATIVE NEGATIVE Urine Ketones TRACE H NEGATIVE Urine Nitrite NEGATIVE NEGATIVE Urine Bilirubin NEGATIVE NEGATIVE Urine Urobilinogen 0.2 < = 1.0 MG/DL Urine Leukocyte Esterase NEGATIVE NEGATIVE Urine RBC (Auto) NEGATIVE NEGATIVE Urine RBC NONE /HPF Urine WBC NONE /HPF Urine Squamous Epithelial Cells RARE /HPF Urine Crystals NONE /LPF Urine Bacteria NEGATIVE /HPF Urine Casts NONE /LPF Urine Mucus NEGATIVE /LPF Urine Culture Indicated NO Urine Opiates Screen NEGATIVE NEGATIVE Urine Oxycodone Screen NEGATIVE NEGATIVE Urine Methadone Screen NEGATIVE NEGATIVE Urine Propoxyphene Screen NEGATIVE NEGATIVE Urine Barbiturates Screen NEGATIVE NEGATIVE Ur Tricyclic Antidepressants Screen NEGATIVE NEGATIVE Urine Phencyclidine Screen NEGATIVE NEGATIVE Urine Amphetamines Screen NEGATIVE NEGATIVE Urine Methamphetamines Screen NEGATIVE NEGATIVE Urine Benzodiazepines Screen NEGATIVE NEGATIVE Urine Cocaine Screen NEGATIVE NEGATIVE Urine Cannabinoids Screen NEGATIVE NEGATIVE My Orders Orders - OSWALDO LA MD Alcohol (09/04/21 15:57) Cbc With Automated Diff (09/04/21 15:57) Comprehensive Metabolic Panel (09/04/21 15:57) Drug Screen Stat (Urine) (09/04/21 15:57) Lipase (09/04/21 15:57) Protime With Inr (09/04/21 15:57) Ua Culture If Indicated (09/04/21 15:57) Ed Iv/Invasive Line Start (09/04/21 15:57) Ekg Tracing (09/04/21 16:35) Monitor-Rhythm Ecg Trace Only (09/04/21 16:35) Vital Signs/I&O 09/04/21 09/04/21 09/04/21 09/04/21 15:43 15:50 19:10 20:53 Temp 35.8 35.8 35.8 Pulse 59 57 50 Resp 18 18 17 B/P (MAP) 92/40 (57) 104/53 126/58 Pulse Ox 99 99 99 O2 Delivery Room Air Room Air Room Air Room Air 09/05/21 00:00 Intake Total 200 ml Balance 200 ml Capillary Refill : Less Than 3 Seconds Blood Pressure Mean: 70 Progress Note : Time: 20:50 Progress Note Patient was feeling well by the end of her ER stay. Vital signs were normal. I communicated at length with poison control and a health careers instructor through poison control. I worked with the patient on identifying the mushrooms by using images on the Internet. 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 The smaller round mushroom is of uncertain identification. 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 Work-up was otherwise unremarkable. Patient was discharged home with orders for labs tomorrow and return precautions. See discharge instructions. Patient finished the liter of IV fluids started by EMS and was tolerating oral fluids prior to discharge. ECG Initial ECG Impression Date: Sep 04, 2021 Initial ECG Impression Time: 16:52 Initial ECG Rate: 63 Initial ECG Rhythm: Normal Sinus Comment Sinus rhythm with no ST elevation or depression. Slightly prolonged QT interval with QTC of 505. No axis deviation. Departure Impression Primary Impression: Mushroom poisoning Qualified Codes: T62.0X1A - Toxic effect of ingested mushrooms, accidental (unintentional), initial encounter Additional Impressions: Nausea & vomiting Qualified Codes: R11.2 - Nausea with vomiting, unspecified Syncope Qualified Codes: R55 - Syncope and collapse Disposition: 01 HOME, SELF-CARE Condition: Improved Departure-Patient Inst. Referrals: PATEL LINDA MD (PCP/Family) Primary Care Physician Patient Instructions: NO INSTRUCTIONS GIVEN Add. Discharge Instructions: Drink plenty of clear liquids. Gradually advance your diet as tolerated with small quantities of bland food. Return to the hospital tomorrow afternoon with your lab order form. Stay at the hospital until Dr. La can review your lab results. Call with questions or concerns. Return to the ER if you have worsening symptoms or recurrence of abdominal pain, vomiting, vision changes, confusion, etc. Do not eat any mushrooms that you do not absolutely know for certain are not poisonous. All discharge instructions reviewed with patient and/or family. Voiced understanding. Scripts No Active Prescriptions or Reported Meds Copy Copies To 1: PATEL LINDA MD, JOSHUA T MD Sep 04, 2021 20:29
[2021-09-04 20:53] VITALS: BP 126/58
== END 2021-09-04 20:48 | disposition home or self-care (01) ==
LOC: EDUNIT# 15:40 → ER 15:42
DX: T62.0X1A Toxic effect of ingested mushrooms, accidental (unintentional), initial encounter (principal); R55 Syncope and collapse; J45.909 Unspecified asthma, uncomplicated
CPT/HCPCS: 80053; 80306; 81000; 83690; 85025; 85610; 93005; 93041; 99284; G0480; 36415; 80320

== ENCOUNTER → 2021-09-05 | Outpatient (CLI) | payer MEDICARE, OTHER ==
[2021-09-05 15:06] LABS: BASOPHILS % (AUTO) 1 % (0-10); EOSINOPHILS # (AUTO) 0.1 10^3/uL (0.0-0.3); EOSINOPHILS % (AUTO) 1 % (0-10); HEMATOCRIT 35 % (35-52); HEMOGLOBIN 11.4 g/dL (11.5-16.0); LYMPHOCYTES # (AUTO) 1.8 10^3/uL (1.0-4.0); LYMPHOCYTES % (AUTO) 34 % (12-44); MEAN CORPUSCULAR HEMOGLOBIN 31 pg (25-34); MEAN CORPUSCULAR HGB CONC 33 g/dL (32-36); MEAN CORPUSCULAR VOLUME 95 fL (80-99); MEAN PLATELET VOLUME 8.7 fL (9.0-12.2); MONOCYTES # (AUTO) 0.4 10^3/uL (0.0-1.0); MONOCYTES % (AUTO) 8 % (0-12); NEUTROPHILS % (AUTO) 56 % (42-75); PLATELET COUNT 176 10^3/uL (130-400); WHITE BLOOD COUNT 5.3 10^3/uL (4.3-11.0)
[2021-09-05 15:25] LABS: PROTHROMBIN TIME PATIENT 13.2 SEC (12.2-14.7)
[2021-09-05 15:31] LABS: ALBUMIN 3.8 GM/DL (3.2-4.5); BILIRUBIN,TOTAL 0.3 MG/DL (0.1-1.0); CREATININE SERUM 0.76 MG/DL (0.60-1.30); POTASSIUM 3.7 MMOL/L (3.6-5.0); TOTAL PROTEIN 6.7 GM/DL (6.4-8.2)
== END ==
LOC: LAB 14:19
PROVIDERS: ATTEND Family Medicine
DX: T62.0X1A Toxic effect of ingested mushrooms, accidental (unintentional), initial encounter (principal)
CPT/HCPCS: 36415; 80053; 82550; 85025; 85610; 85730